=== PATIENT | male | born 1940 | race Caucasian/White ===

== ENCOUNTER 2016-08-12 06:06 | Inpatient (IN) | payer MEDICARE ==
[~2016-08-12] VITALS: Ht 182.9 cm; Wt 106.0 kg
[2016-08-12] VITALS (9 sets, daily range): BP systolic 121–137; BP diastolic 67–77
[~2016-08-12 06:06] MED LIST: ALBU8.5H3 INH; AMIO200T42 PO; BUDE10.2 INH; CALC1CAP8 PO; CEPH-368 PO; CHOL200012 PO; FURO-92 PO; FURO20TA3 PO; LISI-167 PO; METO25TA91 PO; MULT-6 PO; POTA20TA14 PO; POTA20TA6 PO; PRED10TA PO; PRED5TAB25 PO; RIVA20TA PO; SIMV20TA3 PO; TIOT18CA INH
[2016-08-12] MEDS ORDERED: LORazepam 2 MG/ML, 1ML ONE ×2 (06:17→07:14)
[2016-08-12] MEDS ORDERED: SODIUM CHLORIDE FLUSH 10ML SYR IVF ONE (06:30)
[2016-08-12] MEDS ORDERED: LORazepam 2 MG/ML, 1ML IVPush ONE ×2 (06:30→07:30)
[2016-08-12] MEDS ORDERED: ALBUTEROL/IPRATROPIUM 2.5MG/0.5MG, 3 ML ONE (06:39)
[2016-08-12] MEDS ORDERED: ALBUTEROL/IPRATROPIUM 2.5MG/0.5MG, 3 ML NPPB ONE (07:00)
[2016-08-12] MEDS ORDERED: DIPHENHYDRAMINE 50 MG/ML, 1ML ONE (07:14)
[2016-08-12 07:15] LABS: BLOOD UREA NITROGEN 34 mg/dL (7-18)
[2016-08-12 07:21] LABS: ACETAMINOPHEN 6 mcg/mL (10-30); ASPARTATE AMINO TRANSFERASE 14 U/L (15-37)
[2016-08-12 07:30] LABS: IS PT STATUS REG ER OR PRE ER? YES
[2016-08-12] MEDS ORDERED: DIPHENHYDRAMINE 50 MG/ML, 1ML IVPush ONE (07:30)
[2016-08-12 07:36] LABS: DIFF TOTAL CELLS COUNTED 100 CELL DIFF
[2016-08-12 07:44] LABS: VERIFY COUNTS? YES
[2016-08-12 07:45] LABS: ANISOCYTOSIS 1+; MICROCYTOSIS 1+; OVALOCYTES 1+; POIKILOCYTOSIS 1+; POLYCHROMASIA 1+
[2016-08-12 07:47] LABS: HYPOCHROMIA 2+; SCHISTOCYTES 1+
[2016-08-12] MEDS ORDERED: SODIUM CHLORIDE 0.9% 500 ML IV SCH (10:54)
[2016-08-12] MEDS ORDERED: ALBUTEROL/IPRATROPIUM 2.5MG/0.5MG, 3 ML NEB PRN (11:00)
[2016-08-12] MEDS ORDERED: ONDANSETRON 2MG/ML, 2ML IVPush PRN (11:30)
[2016-08-12] MEDS ORDERED: BISACODYL 10 MG SUPP PR PRN (11:30)
[2016-08-12] MEDS ORDERED: POLYETHYLENE GLYCOL 17 GM PACKET PO PRN (11:30)
[2016-08-12] MEDS ORDERED: ONDANSETRON ODT 4 MG PO PRN (11:30)
[2016-08-12] MEDS ORDERED: LEVETIRACETAM 1,000 MG in SODIUM CHLORIDE 0.9% 100 ML IV ONE (11:43)
[2016-08-12] MEDS ORDERED: IPRATROPIUM 0.5 MG/2.5 ML INHA NPPB SCH (12:00)
[2016-08-12] MEDS: ALBUTEROL/IPRATROPIUM 2.5MG/0.5MG, 3 ML NPPB SCH ×4 (13:00→22:00)
[2016-08-12 15:01] LABS: IS PT STATUS REG ER OR PRE ER? NO
[2016-08-12] MEDS: CEFTRIAXONE PMX 1GM/50ML 50 ML IV SCH (15:49)
[2016-08-12] MEDS: SIMVASTATIN 20 MG TABLET PO SCH (20:08)
[2016-08-12 21:04] LABS: IS PT STATUS REG ER OR PRE ER? NO
[2016-08-13 01:41] VITALS: BP 115/61
[2016-08-13] MEDS: ALBUTEROL/IPRATROPIUM 2.5MG/0.5MG, 3 ML NPPB SCH ×6 (02:00→22:00)
[2016-08-13 05:25] LABS: BLOOD UREA NITROGEN 27 mg/dL (7-18)
[2016-08-13 05:28] LABS: ASPARTATE AMINO TRANSFERASE 19 U/L (15-37)
[2016-08-13 05:50] LABS: DIFF TOTAL CELLS COUNTED 100 CELL DIFF
[2016-08-13 05:51] LABS: ANISOCYTOSIS 1+; VERIFY COUNTS? YES
[2016-08-13 05:52] LABS: HYPOCHROMIA 1+; MICROCYTOSIS 1+; POIKILOCYTOSIS 1+; POLYCHROMASIA 1+; SCHISTOCYTES 1+
[2016-08-13 05:53] LABS: OVALOCYTES 2+
[2016-08-13 08:28] VITALS: BP 114/65
[2016-08-13] MEDS: FUROSEMIDE 40 MG TABLET PO SCH (08:54)
[2016-08-13] MEDS: METOPROLOL SUCCINATE 25 MG TAB.ER.24H PO SCH (08:55)
[2016-08-13] MEDS: AMIODARONE 200 MG TABLET PO SCH (08:55)
[2016-08-13 08:56] VITALS: BP 123/58
[2016-08-13 13:24] VITALS: BP 112/66
[2016-08-13] MEDS: CEFTRIAXONE PMX 1GM/50ML 50 ML IV SCH (14:33)
[2016-08-13] MEDS: FLUTICASONE/VILANTEROL 200-25MCG/INH INH SCH (15:10)
[2016-08-13 16:07] LABS: CHROMATIN AB <0.2 AI (0.0-0.9); SJOGREN'S SS-A AB <0.2 AI (0.0-0.9)
[2016-08-13 19:52] VITALS: BP 120/62
[2016-08-13] MEDS: SIMVASTATIN 20 MG TABLET PO SCH (22:18)
[2016-08-14 01:42] VITALS: BP 133/71
[2016-08-14] MEDS: ALBUTEROL/IPRATROPIUM 2.5MG/0.5MG, 3 ML NPPB SCH ×5 (02:00→20:00)
[2016-08-14 05:14] LABS: ASPARTATE AMINO TRANSFERASE 23 U/L (15-37); BLOOD UREA NITROGEN 31 mg/dL (7-18)
[2016-08-14 07:07] VITALS: BP 124/64
[2016-08-14] MEDS: AMIODARONE 200 MG TABLET PO SCH (09:37)
[2016-08-14] MEDS: METOPROLOL SUCCINATE 25 MG TAB.ER.24H PO SCH (09:37)
[2016-08-14] MEDS: FUROSEMIDE 40 MG TABLET PO SCH (09:37)
[2016-08-14] MEDS: FLUTICASONE/VILANTEROL 200-25MCG/INH INH SCH (09:37)
[2016-08-14] MEDS: CEFTRIAXONE PMX 1GM/50ML 50 ML IV SCH (14:23)
[2016-08-14 15:18] VITALS: BP 114/63
[2016-08-14 19:49] VITALS: BP 102/60
[2016-08-14] MEDS: SIMVASTATIN 20 MG TABLET PO SCH (20:12)
[2016-08-15 00:03] VITALS: BP 123/65
[2016-08-15 05:48] LABS: BLOOD UREA NITROGEN 28 mg/dL (7-18)
[2016-08-15] MEDS: ALBUTEROL/IPRATROPIUM 2.5MG/0.5MG, 3 ML NPPB SCH ×5 (06:57→19:15)
[2016-08-15 07:51] VITALS: BP 100/55
[2016-08-15] MEDS: METOPROLOL SUCCINATE 25 MG TAB.ER.24H PO SCH (09:00)
[2016-08-15] MEDS: FUROSEMIDE 40 MG TABLET PO SCH (10:11)
[2016-08-15] MEDS: AMIODARONE 200 MG TABLET PO SCH (10:11)
[2016-08-15] MEDS: FLUTICASONE/VILANTEROL 200-25MCG/INH INH SCH (10:11)
[2016-08-15 13:16] VITALS: BP 103/54
[2016-08-15] MEDS: CEFTRIAXONE PMX 1GM/50ML 50 ML IV SCH (14:48)
[2016-08-15] MEDS: ACETAMINOPHEN 325 MG TABLET PO PRN (14:48)
[2016-08-15 19:46] VITALS: BP 121/71
[2016-08-15] MEDS: CARBAMAZEPINE 200 MG TABLET PO SCH (20:35)
[2016-08-15] MEDS: SIMVASTATIN 20 MG TABLET PO SCH (20:35)
[2016-08-16 00:17] VITALS: BP 129/75
[2016-08-16] MEDS: ACETAMINOPHEN 325 MG TABLET PO PRN ×3 (04:30→13:53)
[2016-08-16 05:39] LABS: BLOOD UREA NITROGEN 24 mg/dL (7-18)
[2016-08-16 08:07] VITALS: BP 127/73
[2016-08-16] MEDS: FLUTICASONE/VILANTEROL 200-25MCG/INH INH SCH (08:55)
[2016-08-16] MEDS: FUROSEMIDE 40 MG TABLET PO SCH (08:55)
[2016-08-16] MEDS: METOPROLOL SUCCINATE 25 MG TAB.ER.24H PO SCH (08:55)
[2016-08-16] MEDS: AMIODARONE 200 MG TABLET PO SCH (08:56)
[2016-08-16] MEDS: CARBAMAZEPINE 200 MG TABLET PO SCH ×2 (08:56→21:07)
[2016-08-16] MEDS: ALBUTEROL/IPRATROPIUM 2.5MG/0.5MG, 3 ML NPPB SCH ×3 (11:15→18:59)
[2016-08-16] MEDS: CEFTRIAXONE PMX 1GM/50ML 50 ML IV SCH (13:53)
[2016-08-16 16:54] VITALS: BP 135/73
[2016-08-16 19:45] VITALS: BP 121/70
[2016-08-16] MEDS: SIMVASTATIN 20 MG TABLET PO SCH (21:07)
[2016-08-17 02:51] VITALS: BP 117/72
[2016-08-17] MEDS: ACETAMINOPHEN 325 MG TABLET PO PRN (03:57)
[2016-08-17 05:17] LABS: BLOOD UREA NITROGEN 29 mg/dL (7-18)
[2016-08-17 07:36] VITALS: BP 123/70
[2016-08-17] MEDS: ALBUTEROL/IPRATROPIUM 2.5MG/0.5MG, 3 ML NPPB SCH ×4 (09:30→19:56)
[2016-08-17] MEDS: FLUTICASONE/VILANTEROL 200-25MCG/INH INH SCH (09:36)
[2016-08-17] MEDS: METOPROLOL SUCCINATE 25 MG TAB.ER.24H PO SCH (09:37)
[2016-08-17] MEDS: CARBAMAZEPINE 200 MG TABLET PO SCH ×2 (09:37→20:21)
[2016-08-17] MEDS: FUROSEMIDE 40 MG TABLET PO SCH (09:37)
[2016-08-17] MEDS: AMIODARONE 200 MG TABLET PO SCH ×2 (09:37→12:21)
[2016-08-17] MEDS: CEFTRIAXONE PMX 1GM/50ML 50 ML IV SCH (14:34)
[2016-08-17 19:10] VITALS: BP 117/60
[2016-08-17] MEDS: SIMVASTATIN 20 MG TABLET PO SCH (20:21)
[2016-08-18 02:24] VITALS: BP 130/77
[2016-08-18 05:17] LABS: BLOOD UREA NITROGEN 27 mg/dL (7-18)
[2016-08-18] MEDS: ACETAMINOPHEN 325 MG TABLET PO PRN (05:55)
[2016-08-18] MEDS: ALBUTEROL/IPRATROPIUM 2.5MG/0.5MG, 3 ML NPPB SCH ×2 (07:00→10:26)
[2016-08-18 07:30] VITALS: BP 130/69
[2016-08-18] MEDS ORDERED: POLY17PO5 PO (08:50)
[2016-08-18] MEDS ORDERED: CARB200T4 PO (08:50)
[2016-08-18] MEDS ORDERED: CEFD300C37 PO (08:50)
[2016-08-18] MEDS: FUROSEMIDE 40 MG TABLET PO SCH (09:06)
[2016-08-18] MEDS: METOPROLOL SUCCINATE 25 MG TAB.ER.24H PO SCH (09:06)
[2016-08-18] MEDS: CARBAMAZEPINE 200 MG TABLET PO SCH (09:06)
[2016-08-18] MEDS: FLUTICASONE/VILANTEROL 200-25MCG/INH INH SCH (09:06)
[2016-08-18] MEDS: AMIODARONE 200 MG TABLET PO SCH (09:07)
[2016-08-18] MEDS ORDERED: OXYC5TAB3 PO (09:20)
== END 2016-08-18 11:00 | disposition home or self-care (01) | DRG 871 ==
LOC: ED 08:25 → EDIP 08:48 → 4WST 11:30 → DCLOUNGE 08-18 10:50
PROVIDERS: ADMIT Internal Medicine; ATTEND Internal Medicine
PROC: 30233N1 Transfusion of Nonautologous Red Blood Cells into Peripheral Vein, Percutaneous Approach (ICD-10-PCS; principal; 2016-08-12)
PROC: 0T9B70Z Drainage of Bladder with Drainage Device, Via Natural or Artificial Opening (ICD-10-PCS; 2016-08-12)
DX: A41.9 Sepsis, unspecified organism (principal); G93.41 Metabolic encephalopathy; I50.43 Acute on chronic combined systolic (congestive) and diastolic (congestive) heart failure; E43 Unspecified severe protein-calorie malnutrition; N17.9 Acute kidney failure, unspecified; J96.11 Chronic respiratory failure with hypoxia; I13.0 Hypertensive heart and chronic kidney disease with heart failure and stage 1 through stage 4 chronic kidney disease, or unspecified chronic kidney disease; N39.0 Urinary tract infection, site not specified; D50.9 Iron deficiency anemia, unspecified; G62.9 Polyneuropathy, unspecified; G50.0 Trigeminal neuralgia; E66.9 Obesity, unspecified; K44.9 Diaphragmatic hernia without obstruction or gangrene; N18.3 Chronic kidney disease, stage 3 (moderate); I27.2 Other secondary pulmonary hypertension; I48.91 Unspecified atrial fibrillation; J44.9 Chronic obstructive pulmonary disease, unspecified; N25.0 Renal osteodystrophy; Z68.31 Body mass index [BMI] 31.0-31.9, adult; Z87.891 Personal history of nicotine dependence; Z95.0 Presence of cardiac pacemaker; Z90.49 Acquired absence of other specified parts of digestive tract; Z79.899 Other long term (current) drug therapy; Z71.3 Dietary counseling and surveillance; R47.1 Dysarthria and anarthria
CPT/HCPCS: 36415; 70450; 71010; 80053; 80069; 80307; 80329; 81001; 82140; 82306; 82330; 82550; 82962; 83520; 83605; 83735; 83970; 84100; 84439; 84484; 84550; 85025; 85610; 85651; 86225; 86235; 86850; 86900; 86923; 87086; 93005; 93306; 94640; 95819; 96374; 96375; J0696; J1953; J7620; J7644; G0480; J1200; J2060; P9016

== ENCOUNTER → 2016-10-06 | Outpatient (CLI) | payer MEDICARE ==
[~2016-10-06] MED LIST changes: +CARB200T4 PO; +CEFD300C37 PO; +OXYC5TAB3 PO; +POLY17PO5 PO
[2016-10-06 15:42] LABS: BLOOD UREA NITROGEN 29 mg/dL (7-18)
[2016-10-06 15:45] LABS: HEMOGLOBIN 10.4 g/dL (13.7-18.0); WHITE BLOOD COUNT 12.1 x10^3/uL (3.4-10)
== END | disposition home or self-care (01) ==
LOC: CFH 12:18
PROVIDERS: ATTEND Internal Medicine Cardiovascular Disease
DX: D64.9 Anemia, unspecified (principal); N28.9 Disorder of kidney and ureter, unspecified
CPT/HCPCS: 36415; 80048; 85027

== ENCOUNTER → 2017-01-26 | Outpatient (CLI) | payer MEDICARE ==
[~2017-01-26] MED LIST changes: -ALBU8.5H3 INH; +ALBU8.5H8 INH; -CHOL200012 PO; +CHOL200074 PO
[2017-01-26 15:34] LABS: HEMATOCRIT 30.6 % (39.2-51.8); HEMOGLOBIN 9.5 g/dL (13.7-18.0); WHITE BLOOD COUNT 6.6 x10^3/uL (3.4-10)
[2017-01-26 15:48] LABS: BLOOD UREA NITROGEN 24 mg/dL (7-18)
== END | disposition home or self-care (01) ==
LOC: LAB 13:13
PROVIDERS: ATTEND Internal Medicine Cardiovascular Disease
DX: D64.9 Anemia, unspecified (principal); N28.9 Disorder of kidney and ureter, unspecified
CPT/HCPCS: 36415; 80048; 85025

== ENCOUNTER 2017-02-18 16:09 | Inpatient (IN) | payer MEDICARE ==
[~2017-02-18] VITALS: Ht 182.9 cm; Wt 108.9 kg
[2017-02-18] MEDS ORDERED: SODIUM CHLORIDE FLUSH 10ML SYR IVF ONE (16:30)
[2017-02-18 16:51] LABS: BASOPHILS # (AUTO) 0.04 x10^3/uL (0-0.1); BASOPHILS % (AUTO) 1 % (0-1); EOSINOPHILS # (AUTO) 0.08 x10^3/uL (0-0.4); EOSINOPHILS % (AUTO) 1 % (1-7); LYMPHOCYTES # (AUTO) 0.53 x10^3/uL (1-3.4); LYMPHOCYTES % (AUTO) 7 % (22-44); MD NO; MEAN CORPUSCULAR HEMOGLOBIN 23.4 pg (27.5-34.5); MEAN CORPUSCULAR HGB CONC 30.8 g/dL (33.2-36.2); MONOCYTES # (AUTO) 1.26 x10^3/uL (0.2-0.8); MONOCYTES % (AUTO) 16 % (2-9); NEUTROPHILS % (AUTO) 77 % (42-75); PLATELET COUNT 284 x10^3/uL (130-400); RED BLOOD COUNT 3.37 x10^6/uL (4.38-5.82); RED CELL DISTRIBUTION WIDTH 18.7 % (9.4-14.8)
[2017-02-18 16:59] LABS: ALANINE AMINOTRANSFERASE 20 U/L (12-78); ALBUMIN 3.1 g/dL (3.4-5.0); ANION GAP 6 mmol/L (5-15); CALCIUM 8.7 mg/dL (8.5-10.1); CHLORIDE 106 mmol/L (98-107); CREATININE 1.34 mg/dL (0.7-1.3)
[2017-02-18 17:03] LABS: ALKALINE PHOSPHATASE 62 U/L (45-117); BILIRUBIN,TOTAL 0.5 mg/dL (0.2-1.0); TOTAL PROTEIN 7.2 g/dL (6.4-8.2); TROPONIN I < 0.015 ng/mL (0.000-0.045)
[2017-02-18] MEDS ORDERED: FUROSEMIDE 40 MG/4 ML IV ONE (17:30)
[2017-02-18] MEDS ORDERED: FUROSEMIDE 40 MG/4 ML ONE (18:23)
[2017-02-18 18:27] LABS: INTERNATIONAL NORMALIZED RATIO 1.22 (0.93-1.1); PROTHROMBIN TIME 12.6 Seconds (9.6-11.5)
[2017-02-18 18:32] LABS: % IRON SATURATION 5 % (20-55); IRON LEVEL 19 mcg/dL (65-175); TOTAL IRON BINDING CAPACITY 387 mcg/dL (250-450)
[2017-02-18] MEDS ORDERED: BISACODYL 10 MG SUPP PR PRN (19:00)
[2017-02-18] MEDS ORDERED: PANTOPRAZOLE 40 MG IV IVPush SCH (19:00)
[2017-02-18] MEDS ORDERED: OXYcodone IR 5MG TABLET PO PRN (19:00)
[2017-02-18] MEDS ORDERED: LABETALOL 5MG/ML, 20ML IVPush PRN (19:00)
[2017-02-18] MEDS ORDERED: POLYETHYLENE GLYCOL 17 GM PACKET PO PRN ×2 (19:00)
[2017-02-18] MEDS ORDERED: DOCUSATE 100 MG CAPSULE PO PRN (19:00)
[2017-02-18] MEDS ORDERED: ACETAMINOPHEN 325 MG TABLET PO PRN (19:00)
[2017-02-18] MEDS ORDERED: ONDANSETRON 2MG/ML, 2ML IVPush PRN (19:00)
[2017-02-18] MEDS ORDERED: ACETAMINOPHEN 325 MG TABLET PO ONE (19:30)
[2017-02-18] MEDS: PANTOPRAZOLE 40 MG IV IVPush SCH (19:30)
[2017-02-18 19:50] VITALS: BP 123/64
[2017-02-18 20:05] VITALS: BP 123/78
[2017-02-18 20:20] VITALS: BP 134/75
[2017-02-18] MEDS ORDERED: ACETAMINOPHEN 325 MG TABLET ONE (20:43)
[2017-02-18] MEDS ORDERED: PANTOPRAZOLE 40 MG IV ONE (20:43)
[2017-02-18] MEDS: SODIUM CHLORIDE FLUSH 10ML SYR IVF SCH (21:00)
[2017-02-18 21:20] VITALS: BP 135/98
[2017-02-18 21:45] VITALS: BP 145/84
[2017-02-18 22:27] VITALS: BP 128/72
[2017-02-18] MEDS: TEMAZEPAM 15 MG CAPSULE PO PRN (23:33)
[2017-02-18] MEDS: SIMVASTATIN 20 MG TABLET PO SCH (23:33)
[2017-02-19] MEDS: CARBAMAZEPINE 200 MG TABLET PO SCH ×3 (00:55→19:42)
[2017-02-19 02:00] VITALS: BP 119/70
[2017-02-19] MEDS ORDERED: IPRATROPIUM 0.5 MG/2.5 ML INHA ONE (03:48)
[2017-02-19] MEDS: ALBUTEROL SULFATE 2.5 MG/3 ML NPPB PRN (03:50)
[2017-02-19] MEDS: IPRATROPIUM 0.5 MG/2.5 ML INHA HHN SCH ×3 (03:50→19:13)
[2017-02-19] MEDS: FUROSEMIDE 40 MG/4 ML IV SCH ×2 (06:23→17:57)
[2017-02-19 07:30] LABS: ANION GAP 6 mmol/L (5-15); CALCIUM 8.6 mg/dL (8.5-10.1); CHLORIDE 103 mmol/L (98-107)
[2017-02-19 07:32] LABS: CREATININE 1.49 mg/dL (0.7-1.3)
[2017-02-19 07:46] LABS: BASOPHILS # (AUTO) 0.04 x10^3/uL (0-0.1); BASOPHILS % (AUTO) 1 % (0-1); EOSINOPHILS % (AUTO) 0 % (1-7); LYMPHOCYTES # (AUTO) 0.53 x10^3/uL (1-3.4); LYMPHOCYTES % (AUTO) 6 % (22-44); MD NO; MEAN CORPUSCULAR HEMOGLOBIN 23.7 pg (27.5-34.5); MEAN CORPUSCULAR VOLUME 76.4 fL (81-97); MEAN PLATELET VOLUME 8.4 fL (7.4-10.4); MONOCYTES # (AUTO) 1.25 x10^3/uL (0.2-0.8); MONOCYTES % (AUTO) 14 % (2-9); NEUTROPHILS # (AUTO) 6.93 x10^3/uL (1.8-6.8); NEUTROPHILS % (AUTO) 79 % (42-75); PLATELET COUNT 289 x10^3/uL (130-400); RED BLOOD COUNT 3.71 x10^6/uL (4.38-5.82); RED CELL DISTRIBUTION WIDTH 19.3 % (9.4-14.8)
[2017-02-19] MEDS: AMIODARONE 200 MG TABLET PO SCH (08:24)
[2017-02-19] MEDS: METOPROLOL SUCCINATE 25 MG TAB.ER.24H PO SCH (08:24)
[2017-02-19] MEDS: POTASSIUM CHLORIDE 20 MEQ TAB.ER.PRT PO SCH ×2 (08:24→17:57)
[2017-02-19] MEDS: PANTOPRAZOLE 40 MG IV IVPush SCH ×2 (08:24→19:30)
[2017-02-19] MEDS: SODIUM CHLORIDE FLUSH 10ML SYR IVF SCH ×2 (08:24→19:42)
[2017-02-19 09:00] VITALS: BP 143/73
[2017-02-19 14:09] LABS: ABSOLUTE RETICS # 0.117 x10^6/uL (0.5-1.5); RED BLOOD COUNT 3.75 x10^6/uL (4.38-5.82); RETICULOCYTE COUNT % 3.12 % (0.5-1.5)
[2017-02-19 14:13] LABS: % IRON SATURATION 5 % (20-55); IRON LEVEL 20 mcg/dL (65-175); TOTAL IRON BINDING CAPACITY 402 mcg/dL (250-450)
[2017-02-19 14:30] VITALS: BP 104/62
[2017-02-19 14:40] LABS: FOLATE LEVEL > 20.0 ng/mL (3.1-17.5)
[2017-02-19 17:55] VITALS: BP 121/70
[2017-02-19 19:23] VITALS: BP 107/65
[2017-02-19] MEDS: SIMVASTATIN 20 MG TABLET PO SCH (19:42)
[2017-02-19] MEDS: FLUTICASONE/VILANTEROL 200-25MCG/INH INH SCH (22:11)
[2017-02-20] MEDS: IPRATROPIUM 0.5 MG/2.5 ML INHA HHN SCH ×4 (01:13→20:31)
[2017-02-20 01:17] VITALS: BP 121/64
[2017-02-20] MEDS: TEMAZEPAM 15 MG CAPSULE PO PRN ×2 (01:19→23:20)
[2017-02-20 02:17] LABS: OCCULT BLOOD POSITIVE (NEGATIVE)
[2017-02-20 06:30] LABS: MEAN CORPUSCULAR HEMOGLOBIN 24.1 pg (27.5-34.5); MEAN CORPUSCULAR HGB CONC 31.9 g/dL (33.2-36.2); MEAN CORPUSCULAR VOLUME 75.4 fL (81-97); MEAN PLATELET VOLUME 7.8 fL (7.4-10.4); PLATELET COUNT 281 x10^3/uL (130-400); RED BLOOD COUNT 3.42 x10^6/uL (4.38-5.82); RED CELL DISTRIBUTION WIDTH 19.3 % (9.4-14.8)
[2017-02-20 06:37] LABS: ALBUMIN 3.1 g/dL (3.4-5.0); ANION GAP 9 mmol/L (5-15); CALCIUM 8.5 mg/dL (8.5-10.1); CHLORIDE 106 mmol/L (98-107)
[2017-02-20 06:48] LABS: MD YES
[2017-02-20 06:50] LABS: LYMPH#(MANUAL) 1.02 x10^3/uL (1-3.4); LYMPHS% (MANUAL) 14 % (22-44); MONOS#(MANUAL) 0.88 x10^3/uL (0.3-2.7); MONOS% (MANUAL) 12 % (2-9); SEGS% (MANUAL) 74 % (42-75)
[2017-02-20 06:54] LABS: <PLATELET ESTIMATE> ADEQUATE; <PLT MORPHOLOGY> NORMAL PLT MORPH; ANISOCYTOSIS 1+; HYPOCHROMIA 1+; MICROCYTOSIS 1+
[2017-02-20 08:00] VITALS: BP 121/75
[2017-02-20] MEDS: PANTOPRAZOLE 40 MG IV IVPush SCH (09:06)
[2017-02-20] MEDS: FUROSEMIDE 40 MG/4 ML IV SCH ×2 (09:06→17:45)
[2017-02-20] MEDS: AMIODARONE 200 MG TABLET PO SCH (09:07)
[2017-02-20] MEDS: METOPROLOL SUCCINATE 25 MG TAB.ER.24H PO SCH (09:07)
[2017-02-20] MEDS: SODIUM CHLORIDE FLUSH 10ML SYR IVF SCH ×2 (09:07→20:25)
[2017-02-20] MEDS: CARBAMAZEPINE 200 MG TABLET PO SCH ×2 (09:07→20:25)
[2017-02-20] MEDS: POTASSIUM CHLORIDE 20 MEQ TAB.ER.PRT PO SCH ×2 (09:07→17:45)
[2017-02-20] MEDS: OMEPRAZOLE 20 MG CAPSULE.DR PO SCH (10:00)
[2017-02-20 15:00] VITALS: BP 102/63
[2017-02-20 19:55] VITALS: BP 108/71
[2017-02-20] MEDS: SIMVASTATIN 20 MG TABLET PO SCH (20:25)
[2017-02-20] MEDS: FLUTICASONE/VILANTEROL 200-25MCG/INH INH SCH (20:25)
[2017-02-21 01:27] VITALS: BP 110/68
[2017-02-21] MEDS: IPRATROPIUM 0.5 MG/2.5 ML INHA HHN SCH ×4 (02:35→19:38)
[2017-02-21 08:52] VITALS: BP 120/72
[2017-02-21] MEDS: AMIODARONE 200 MG TABLET PO SCH (08:58)
[2017-02-21] MEDS: FERROUS GLUCONATE 324 MG TABLET PO SCH (08:58)
[2017-02-21] MEDS: POTASSIUM CHLORIDE 20 MEQ TAB.ER.PRT PO SCH ×2 (08:58→16:58)
[2017-02-21] MEDS: OMEPRAZOLE 20 MG CAPSULE.DR PO SCH (08:58)
[2017-02-21] MEDS: FUROSEMIDE 40 MG/4 ML IV SCH ×2 (08:58→16:58)
[2017-02-21] MEDS: CARBAMAZEPINE 200 MG TABLET PO SCH ×2 (08:58→21:32)
[2017-02-21] MEDS: METOPROLOL SUCCINATE 25 MG TAB.ER.24H PO SCH (08:59)
[2017-02-21] MEDS: SODIUM CHLORIDE FLUSH 10ML SYR IVF SCH ×2 (08:59→21:34)
[2017-02-21 13:57] VITALS: BP 128/78
[2017-02-21 20:48] VITALS: BP 124/71
[2017-02-21] MEDS: SIMVASTATIN 20 MG TABLET PO SCH (21:33)
[2017-02-21] MEDS: FLUTICASONE/VILANTEROL 200-25MCG/INH INH SCH (21:34)
[2017-02-22] MEDS: IPRATROPIUM 0.5 MG/2.5 ML INHA HHN SCH ×4 (04:55→19:09)
[2017-02-22 05:07] VITALS: BP 117/67
[2017-02-22 05:55] LABS: ANION GAP 10 mmol/L (5-15); CALCIUM 8.7 mg/dL (8.5-10.1); CHLORIDE 102 mmol/L (98-107); CREATININE 2.03 mg/dL (0.7-1.3)
[2017-02-22 06:53] VITALS: BP 118/71
[2017-02-22] MEDS: CARBAMAZEPINE 200 MG TABLET PO SCH ×2 (08:43→21:31)
[2017-02-22] MEDS: AMIODARONE 200 MG TABLET PO SCH (08:43)
[2017-02-22] MEDS: FUROSEMIDE 40 MG/4 ML IV SCH (08:43)
[2017-02-22] MEDS: METOPROLOL SUCCINATE 25 MG TAB.ER.24H PO SCH (08:43)
[2017-02-22] MEDS: SODIUM CHLORIDE FLUSH 10ML SYR IVF SCH ×2 (08:44→21:31)
[2017-02-22] MEDS: OMEPRAZOLE 20 MG CAPSULE.DR PO SCH (08:44)
[2017-02-22] MEDS: FERROUS GLUCONATE 324 MG TABLET PO SCH (08:44)
[2017-02-22] MEDS: POTASSIUM CHLORIDE 20 MEQ TAB.ER.PRT PO SCH ×2 (08:44→15:56)
[2017-02-22 12:24] VITALS: BP 121/76
[2017-02-22] MEDS: SODIUM CHLORIDE 0.9% 500 ML IV SCH ×2 (12:41→15:21)
[2017-02-22 21:28] VITALS: BP 115/74
[2017-02-22] MEDS: SIMVASTATIN 20 MG TABLET PO SCH (21:31)
[2017-02-22] MEDS: FLUTICASONE/VILANTEROL 200-25MCG/INH INH SCH (21:32)
[2017-02-23] MEDS: ALBUTEROL SULFATE 2.5 MG/3 ML NPPB PRN (00:29)
[2017-02-23 02:11] VITALS: BP 126/72
[2017-02-23] MEDS: IPRATROPIUM 0.5 MG/2.5 ML INHA HHN SCH ×2 (03:00→06:44)
[2017-02-23 07:36] LABS: ANION GAP 5 mmol/L (5-15); CALCIUM 8.4 mg/dL (8.5-10.1); CHLORIDE 104 mmol/L (98-107); CREATININE 1.75 mg/dL (0.7-1.3)
[2017-02-23 08:02] VITALS: BP 109/61
[2017-02-23] MEDS: SODIUM CHLORIDE FLUSH 10ML SYR IVF SCH (08:24)
[2017-02-23] MEDS: AMIODARONE 200 MG TABLET PO SCH (08:25)
[2017-02-23] MEDS: FERROUS GLUCONATE 324 MG TABLET PO SCH (08:25)
[2017-02-23] MEDS: OMEPRAZOLE 20 MG CAPSULE.DR PO SCH (08:25)
[2017-02-23] MEDS: METOPROLOL SUCCINATE 25 MG TAB.ER.24H PO SCH (08:25)
[2017-02-23] MEDS: POTASSIUM CHLORIDE 20 MEQ TAB.ER.PRT PO SCH (08:25)
[2017-02-23] MEDS: CARBAMAZEPINE 200 MG TABLET PO SCH (08:25)
[2017-02-23] MEDS ORDERED: OMEP-110 PO (10:36)
[2017-02-23] MEDS ORDERED: POTA20TA6 PO (10:36)
[2017-02-23] MEDS ORDERED: FURO-92 PO (10:36)
[2017-02-23] MEDS ORDERED: FERR325T16 PO (10:36)
[2017-02-23] MEDS ORDERED: TIOT18CA INH (10:36)
== END 2017-02-23 14:58 | disposition home or self-care (01) | DRG 291 ==
LOC: ED 19:18 → EDIP 19:56 → 5SO 22:47 → DCLOUNGE 02-23 14:29
PROVIDERS: ADMIT Internal Medicine; ATTEND Internal Medicine
PROC: 30233N1 Transfusion of Nonautologous Red Blood Cells into Peripheral Vein, Percutaneous Approach (ICD-10-PCS; principal; 2017-02-18)
PROC: 5A09357 Assistance with Respiratory Ventilation, Less than 24 Consecutive Hours, Continuous Positive Airway Pressure (ICD-10-PCS; 2017-02-22)
DX: I13.0 Hypertensive heart and chronic kidney disease with heart failure and stage 1 through stage 4 chronic kidney disease, or unspecified chronic kidney disease (principal); I50.43 Acute on chronic combined systolic (congestive) and diastolic (congestive) heart failure; J96.21 Acute and chronic respiratory failure with hypoxia; N17.9 Acute kidney failure, unspecified; E44.0 Moderate protein-calorie malnutrition; D68.59 Other primary thrombophilia; I31.3 Pericardial effusion (noninflammatory); N18.3 Chronic kidney disease, stage 3 (moderate); Z99.81 Dependence on supplemental oxygen; J44.9 Chronic obstructive pulmonary disease, unspecified; I48.2 Chronic atrial fibrillation; D50.0 Iron deficiency anemia secondary to blood loss (chronic); E66.9 Obesity, unspecified; E78.5 Hyperlipidemia, unspecified; G47.33 Obstructive sleep apnea (adult) (pediatric); R73.9 Hyperglycemia, unspecified; I34.0 Nonrheumatic mitral (valve) insufficiency; I87.2 Venous insufficiency (chronic) (peripheral); K44.9 Diaphragmatic hernia without obstruction or gangrene; K59.00 Constipation, unspecified; Z79.01 Long term (current) use of anticoagulants; Z87.891 Personal history of nicotine dependence; Z95.0 Presence of cardiac pacemaker; Z68.32 Body mass index [BMI] 32.0-32.9, adult
CPT/HCPCS: 36415; 71045; 80048; 80053; 82040; 82272; 82607; 82728; 82746; 83540; 83550; 83735; 83880; 84484; 85014; 85018; 85025; 85045; 85610; 86850; 86900; 86923; 93005; 93306; 94640; 94660; J1940; J7613; J7644; C9113; J7040; P9016

== ENCOUNTER → 2017-03-30 | Outpatient (CLI) | payer MEDICARE ==
[~2017-03-30] MED LIST changes: +FERR325T16 PO; +OMEP-110 PO
[2017-03-30 11:47] LABS: BASOPHILS # (AUTO) 0.03 x10^3/uL (0-0.1); BASOPHILS % (AUTO) 1 % (0-1); EOSINOPHILS # (AUTO) 0.08 x10^3/uL (0-0.4); EOSINOPHILS % (AUTO) 2 % (1-7); LYMPHOCYTES # (AUTO) 0.92 x10^3/uL (1-3.4); LYMPHOCYTES % (AUTO) 17 % (22-44); MD NO; MEAN CORPUSCULAR HGB CONC 31.4 g/dL (33.2-36.2); MEAN CORPUSCULAR VOLUME 76.4 fL (81-97); MEAN PLATELET VOLUME 9.1 fL (7.4-10.4); MONOCYTES # (AUTO) 0.86 x10^3/uL (0.2-0.8); MONOCYTES % (AUTO) 16 % (2-9); NEUTROPHILS # (AUTO) 3.58 x10^3/uL (1.8-6.8); NEUTROPHILS % (AUTO) 65 % (42-75); PLATELET COUNT 247 x10^3/uL (130-400); RED BLOOD COUNT 4.77 x10^6/uL (4.38-5.82); RED CELL DISTRIBUTION WIDTH 20.9 % (9.4-14.8)
[2017-03-30 12:27] LABS: ALBUMIN 3.3 g/dL (3.4-5.0); ANION GAP 7 mmol/L (5-15); CALCIUM 8.8 mg/dL (8.5-10.1); CHLORIDE 107 mmol/L (98-107)
[2017-03-30 12:35] LABS: % IRON SATURATION 10 % (20-55); ALANINE AMINOTRANSFERASE 22 U/L (12-78); ALKALINE PHOSPHATASE 61 U/L (45-117); BILIRUBIN,TOTAL 0.5 mg/dL (0.2-1.0); CREATININE 1.53 mg/dL (0.7-1.3); IRON LEVEL 38 mcg/dL (65-175); TOTAL IRON BINDING CAPACITY 373 mcg/dL (250-450); TOTAL PROTEIN 7.4 g/dL (6.4-8.2)
== END ==
LOC: LAB 11:04
PROVIDERS: ATTEND Internal Medicine Cardiovascular Disease
DX: D50.9 Iron deficiency anemia, unspecified (principal); E66.9 Obesity, unspecified; E78.5 Hyperlipidemia, unspecified; G25.81 Restless legs syndrome; G47.30 Sleep apnea, unspecified; D64.9 Anemia, unspecified; N28.9 Disorder of kidney and ureter, unspecified
CPT/HCPCS: 36415; 80053; 82728; 83540; 83550; 84443; 85025

== ENCOUNTER → 2017-04-22 | Outpatient (CLI) | payer MEDICARE ==
[2017-04-22 15:32] LABS: CULTURE INDICATED? YES; MICROSCOPIC INDICATED
[2017-04-22 15:36] LABS: MD YES; MEAN CORPUSCULAR HEMOGLOBIN 25.3 pg (27.5-34.5); MEAN CORPUSCULAR HGB CONC 32.1 g/dL (33.2-36.2); MEAN CORPUSCULAR VOLUME 78.8 fL (81-97); MEAN PLATELET VOLUME 9.7 fL (7.4-10.4); PLATELET COUNT 221 x10^3/uL (130-400); RED BLOOD COUNT 4.87 x10^6/uL (4.38-5.82); RED CELL DISTRIBUTION WIDTH 24.3 % (9.4-14.8)
[2017-04-22 15:41] LABS: ALBUMIN 3.4 g/dL (3.4-5.0); ANION GAP 6 mmol/L (5-15); CALCIUM 8.6 mg/dL (8.5-10.1); CHLORIDE 106 mmol/L (98-107)
[2017-04-22 15:47] LABS: % IRON SATURATION 50 % (20-55); ALANINE AMINOTRANSFERASE 21 U/L (12-78); ALKALINE PHOSPHATASE 65 U/L (45-117); BILIRUBIN,TOTAL 0.4 mg/dL (0.2-1.0); CREATININE 1.59 mg/dL (0.7-1.3); IRON LEVEL 185 mcg/dL (65-175); TOTAL IRON BINDING CAPACITY 370 mcg/dL (250-450); TOTAL PROTEIN 7.4 g/dL (6.4-8.2)
[2017-04-22 16:05] LABS: LYMPH#(MANUAL) 1.16 x10^3/uL (1-3.4); LYMPHS% (MANUAL) 21 % (22-44); MONOS#(MANUAL) 0.99 x10^3/uL (0.3-2.7); MONOS% (MANUAL) 18 % (2-9); SEG#(MANUAL) 3.36 x10^3/uL (1.8-6.8); SEGS% (MANUAL) 61 % (42-75)
[2017-04-22 16:06] LABS: ANISOCYTOSIS 1+; MICROCYTOSIS 1+
[2017-04-22 16:07] LABS: <PLATELET ESTIMATE> ADEQUATE; <PLT MORPHOLOGY> NORMAL PLT MORPH
== END ==
LOC: CFH 13:25
PROVIDERS: ATTEND Internal Medicine Nephrology
DX: I48.2 Chronic atrial fibrillation (principal); D64.9 Anemia, unspecified; N18.3 Chronic kidney disease, stage 3 (moderate); K44.9 Diaphragmatic hernia without obstruction or gangrene; D50.0 Iron deficiency anemia secondary to blood loss (chronic); N28.9 Disorder of kidney and ureter, unspecified; Z79.01 Long term (current) use of anticoagulants
CPT/HCPCS: 36415; 80053; 81001; 82570; 82728; 83540; 83550; 83735; 84100; 85025; 87086

== ENCOUNTER → 2017-05-04 | Outpatient (CLI) | payer MEDICARE | END | disposition home or self-care (01) | LOC: CFH 15:06 | PROVIDERS: ATTEND Nurse Practitioner Family | DX: I08.3 Combined rheumatic disorders of mitral, aortic and tricuspid valves (principal); I31.3 Pericardial effusion (noninflammatory); I10 Essential (primary) hypertension; E78.5 Hyperlipidemia, unspecified; I48.91 Unspecified atrial fibrillation; Z87.891 Personal history of nicotine dependence | CPT/HCPCS: 93306 ==

== ENCOUNTER 2017-05-19 22:55 | Inpatient (IN) | payer MEDICARE ==
[~2017-05-19] VITALS: Ht 182.9 cm; Wt 106.5 kg
[2017-05-19] MEDS ORDERED: SODIUM CHLORIDE FLUSH 10ML SYR IVF ONE (23:30)
[2017-05-19 23:50] LABS: BASOPHILS # (AUTO) 0.06 x10^3/uL (0-0.1); BASOPHILS % (AUTO) 1 % (0-1); EOSINOPHILS # (AUTO) 0.11 x10^3/uL (0-0.4); EOSINOPHILS % (AUTO) 2 % (1-7); LYMPHOCYTES # (AUTO) 0.66 x10^3/uL (1-3.4); LYMPHOCYTES % (AUTO) 10 % (22-44); MD NO; MEAN CORPUSCULAR HGB CONC 32.7 g/dL (33.2-36.2); MEAN CORPUSCULAR VOLUME 82.5 fL (81-97); MEAN PLATELET VOLUME 8.8 fL (7.4-10.4); MONOCYTES # (AUTO) 1.17 x10^3/uL (0.2-0.8); MONOCYTES % (AUTO) 18 % (2-9); NEUTROPHILS # (AUTO) 4.64 x10^3/uL (1.8-6.8); NEUTROPHILS % (AUTO) 70 % (42-75); PLATELET COUNT 249 x10^3/uL (130-400); RED BLOOD COUNT 4.64 x10^6/uL (4.38-5.82); RED CELL DISTRIBUTION WIDTH 24.9 % (9.4-14.8)
[2017-05-20 00:02] LABS: ALANINE AMINOTRANSFERASE 20 U/L (12-78); ALBUMIN 3.4 g/dL (3.4-5.0); ANION GAP 10 mmol/L (5-15); CALCIUM 8.5 mg/dL (8.5-10.1); CHLORIDE 105 mmol/L (98-107); CREATININE 1.64 mg/dL (0.7-1.3)
[2017-05-20 00:06] LABS: ALKALINE PHOSPHATASE 62 U/L (45-117); BILIRUBIN,TOTAL 0.3 mg/dL (0.2-1.0); TOTAL PROTEIN 7.5 g/dL (6.4-8.2); TROPONIN I < 0.015 ng/mL (0.000-0.045)
[2017-05-20] MEDS ORDERED: ONDANSETRON ODT 4 MG ONE (00:17)
[2017-05-20] MEDS ORDERED: MORPHINE SULFATE 4 MG/ML, 1ML ONE ×2 (00:18→02:26)
[2017-05-20] MEDS: MORPHINE SULFATE 4 MG/ML, 1ML IVPush PRN ×2 (00:23→02:53)
[2017-05-20] MEDS ORDERED: ONDANSETRON ODT 4 MG PO ONE (00:30)
[2017-05-20 01:40] LABS: CULTURE INDICATED? YES; MICROSCOPIC INDICATED
[2017-05-20] MEDS ORDERED: SODIUM CHLORIDE 0.9% 1,000 ML IV ONE (02:02)
[2017-05-20] MEDS ORDERED: METRONIDAZOLE PMX 500MG/100ML 100 ML ONE (02:27)
[2017-05-20] MEDS ORDERED: CIPROFLOXACIN/PMX 400MG/200ML 200 ML IV ONE (02:30)
[2017-05-20] MEDS ORDERED: METRONIDAZOLE PMX 500MG/100ML 100 ML IV ONE (02:30)
[2017-05-20] MEDS ORDERED: ROPINIROLE PO (02:59)
[2017-05-20] MEDS ORDERED: SODIUM CHLORIDE 0.9% 1,000 ML IV SCH (03:21)
[2017-05-20] MEDS ORDERED: ACETAMINOPHEN 325 MG TABLET PO PRN (03:30)
[2017-05-20] MEDS ORDERED: CEFTRIAXONE PMX 1GM/50ML 50 ML IV SCH (03:30)
[2017-05-20] MEDS ORDERED: ONDANSETRON 2MG/ML, 2ML IVPush PRN (03:30)
[2017-05-20] MEDS ORDERED: POLYETHYLENE GLYCOL 17 GM PACKET PO PRN (03:30)
[2017-05-20] MEDS ORDERED: CEFTRIAXONE PMX 1GM/50ML 50 ML ONE (03:56)
[2017-05-20 04:25] VITALS: BP 111/70
[2017-05-20] MEDS ORDERED: ALBUTEROL/IPRATROPIUM 2.5MG/0.5MG, 3 ML NPPB PRN (04:30)
[2017-05-20] MEDS ORDERED: RIVA20TA PO (05:16)
[2017-05-20] MEDS ORDERED: ASCO10004 PO (05:20)
[2017-05-20] MEDS: ALBUTEROL SULFATE INH SCH (06:01)
[2017-05-20 06:50] VITALS: BP 106/64
[2017-05-20] MEDS ORDERED: ALBUTEROL/IPRATROPIUM 2.5MG/0.5MG, 3 ML NPPB SCH (07:00)
[2017-05-20] MEDS: morphine SULFATE 10 MG/ML, 1ML IVPush PRN ×3 (08:00→16:04)
[2017-05-20] MEDS: IPRATROPIUM 0.5 MG/2.5 ML INHA HHN SCH ×2 (09:00→15:00)
[2017-05-20] MEDS: FERROUS GLUCONATE 324 MG TABLET PO SCH (09:02)
[2017-05-20] MEDS: POTASSIUM CHLORIDE 20 MEQ TAB.ER.PRT PO SCH (09:02)
[2017-05-20] MEDS: FUROSEMIDE 40 MG TABLET PO SCH (09:02)
[2017-05-20] MEDS: METOPROLOL SUCCINATE 25 MG TAB.ER.24H PO SCH (09:02)
[2017-05-20] MEDS: AMIODARONE 200 MG TABLET PO SCH (09:03)
[2017-05-20] MEDS: FLUTICASONE/VILANTEROL 200-25MCG/INH INH SCH (09:39)
[2017-05-20] MEDS: OMEPRAZOLE 20 MG CAPSULE.DR PO SCH (09:39)
[2017-05-20] MEDS ORDERED: CEFTRIAXONE 2 GM in DEXTROSE 5% 50 ML IV SCH (10:00)
[2017-05-20] MEDS: RIVAROXABAN 20 MG TABLET PO SCH (10:20)
[2017-05-20] MEDS: CEFTRIAXONE 2 GM in DEXTROSE 5% 50 ML IVPB SCH (10:55)
[2017-05-20] MEDS: METRONIDAZOLE PMX 500MG/100ML 100 ML IV SCH ×2 (12:25→20:53)
[2017-05-20 13:41] VITALS: BP 108/70
[2017-05-20 20:17] VITALS: BP 128/78
[2017-05-20] MEDS: SIMVASTATIN 20 MG TABLET PO SCH (20:53)
[2017-05-20] MEDS: ALBUTEROL/IPRATROPIUM 2.5MG/0.5MG, 3 ML NPPB SCH (21:15)
[2017-05-21 01:27] VITALS: BP 133/78
[2017-05-21] MEDS: ALBUTEROL SULFATE INH SCH (03:30)
[2017-05-21] MEDS: METRONIDAZOLE PMX 500MG/100ML 100 ML IV SCH ×3 (05:05→22:07)
[2017-05-21 05:51] LABS: MEAN CORPUSCULAR HEMOGLOBIN 26.8 pg (27.5-34.5); MEAN CORPUSCULAR HGB CONC 32.4 g/dL (33.2-36.2); MEAN CORPUSCULAR VOLUME 82.9 fL (81-97); MEAN PLATELET VOLUME 8.7 fL (7.4-10.4); PLATELET COUNT 196 x10^3/uL (130-400); RED BLOOD COUNT 4.42 x10^6/uL (4.38-5.82); RED CELL DISTRIBUTION WIDTH 25.6 % (9.4-14.8)
[2017-05-21 05:56] LABS: ALBUMIN 3.2 g/dL (3.4-5.0); CHLORIDE 107 mmol/L (98-107)
[2017-05-21 06:04] LABS: ALANINE AMINOTRANSFERASE 17 U/L (12-78); ALKALINE PHOSPHATASE 55 U/L (45-117); ANION GAP 5 mmol/L (5-15); BILIRUBIN,TOTAL 0.3 mg/dL (0.2-1.0); CALCIUM 8.4 mg/dL (8.5-10.1)
[2017-05-21 06:19] LABS: BASOPHILS # (AUTO) 0.02 x10^3/uL (0-0.1); BASOPHILS % (AUTO) 0 % (0-1); EOSINOPHILS # (AUTO) 0.17 x10^3/uL (0-0.4); EOSINOPHILS % (AUTO) 3 % (1-7); LYMPHOCYTES # (AUTO) 0.61 x10^3/uL (1-3.4); LYMPHOCYTES % (AUTO) 9 % (22-44); MD SCAN; MONOCYTES # (AUTO) 1.23 x10^3/uL (0.2-0.8); MONOCYTES % (AUTO) 18 % (2-9); NEUTROPHILS # (AUTO) 4.79 x10^3/uL (1.8-6.8); NEUTROPHILS % (AUTO) 70 % (42-75)
[2017-05-21] MEDS: morphine SULFATE 10 MG/ML, 1ML IVPush PRN ×2 (06:55→20:45)
[2017-05-21 07:47] VITALS: BP 114/62
[2017-05-21] MEDS: POTASSIUM CHLORIDE 20 MEQ TAB.ER.PRT PO SCH (08:36)
[2017-05-21] MEDS: METOPROLOL SUCCINATE 25 MG TAB.ER.24H PO SCH (08:37)
[2017-05-21] MEDS: FUROSEMIDE 40 MG TABLET PO SCH (08:37)
[2017-05-21] MEDS: AMIODARONE 200 MG TABLET PO SCH (08:38)
[2017-05-21] MEDS: OMEPRAZOLE 20 MG CAPSULE.DR PO SCH (08:38)
[2017-05-21] MEDS: FERROUS GLUCONATE 324 MG TABLET PO SCH (08:38)
[2017-05-21] MEDS: FLUTICASONE/VILANTEROL 200-25MCG/INH INH SCH (08:39)
[2017-05-21] MEDS: ALBUTEROL/IPRATROPIUM 2.5MG/0.5MG, 3 ML NPPB SCH ×2 (09:00→20:36)
[2017-05-21] MEDS: RIVAROXABAN 20 MG TABLET PO SCH (11:01)
[2017-05-21] MEDS: CEFTRIAXONE 2 GM in DEXTROSE 5% 50 ML IVPB SCH (11:01)
[2017-05-21] MEDS ORDERED: PHARMACY MAY ADJ FOR RENAL FX MC PRN (13:00)
[2017-05-21 13:57] VITALS: BP 110/62
[2017-05-21] MEDS: ACYCLOVIR 1,000 MG in SODIUM CHLORIDE 0.9% 250 ML IV SCH ×2 (15:20→23:43)
[2017-05-21 18:48] VITALS: BP 96/58
[2017-05-21] MEDS: SIMVASTATIN 20 MG TABLET PO SCH (20:45)
[2017-05-22 00:08] VITALS: BP 125/71
[2017-05-22] MEDS: ALBUTEROL SULFATE INH SCH (03:04)
[2017-05-22] MEDS: METRONIDAZOLE PMX 500MG/100ML 100 ML IV SCH ×3 (06:18→22:09)
[2017-05-22 08:30] VITALS: BP 116/65
[2017-05-22] MEDS: ALBUTEROL/IPRATROPIUM 2.5MG/0.5MG, 3 ML NPPB SCH ×2 (09:00→19:51)
[2017-05-22] MEDS: POLYETHYLENE GLYCOL 17 GM PACKET PO SCH (09:05)
[2017-05-22] MEDS: FERROUS GLUCONATE 324 MG TABLET PO SCH (09:05)
[2017-05-22] MEDS: POTASSIUM CHLORIDE 20 MEQ TAB.ER.PRT PO SCH (09:05)
[2017-05-22] MEDS: RIVAROXABAN 20 MG TABLET PO SCH (09:05)
[2017-05-22] MEDS: AMIODARONE 200 MG TABLET PO SCH (09:05)
[2017-05-22] MEDS: METOPROLOL SUCCINATE 25 MG TAB.ER.24H PO SCH (09:05)
[2017-05-22] MEDS: ACYCLOVIR 1,000 MG in SODIUM CHLORIDE 0.9% 250 ML IV SCH ×2 (09:06→17:03)
[2017-05-22] MEDS: OMEPRAZOLE 20 MG CAPSULE.DR PO SCH (09:06)
[2017-05-22] MEDS: FUROSEMIDE 40 MG TABLET PO SCH (09:06)
[2017-05-22] MEDS: FLUTICASONE/VILANTEROL 200-25MCG/INH INH SCH (09:16)
[2017-05-22] MEDS: morphine SULFATE 10 MG/ML, 1ML IVPush PRN (09:49)
[2017-05-22] MEDS: CEFTRIAXONE 2 GM in DEXTROSE 5% 50 ML IVPB SCH (11:19)
[2017-05-22 14:30] VITALS: BP 137/75
[2017-05-22 19:13] VITALS: BP 136/60
[2017-05-22] MEDS: SIMVASTATIN 20 MG TABLET PO SCH (20:46)
[2017-05-22] MEDS: HYDROcodone/APAP 5/325 TABLET PO PRN (22:09)
[2017-05-23 00:57] VITALS: BP 110/64
[2017-05-23] MEDS: ALBUTEROL SULFATE INH SCH (01:39)
[2017-05-23] MEDS: ACYCLOVIR 1,000 MG in SODIUM CHLORIDE 0.9% 250 ML IV SCH ×3 (01:39→17:46)
[2017-05-23] MEDS: METRONIDAZOLE PMX 500MG/100ML 100 ML IV SCH ×3 (05:22→22:05)
[2017-05-23] MEDS: HYDROcodone/APAP 5/325 TABLET PO PRN ×4 (05:22→20:32)
[2017-05-23 06:49] VITALS: BP 117/65
[2017-05-23] MEDS: ALBUTEROL/IPRATROPIUM 2.5MG/0.5MG, 3 ML NPPB SCH ×3 (09:00→20:22)
[2017-05-23] MEDS: FERROUS GLUCONATE 324 MG TABLET PO SCH (09:25)
[2017-05-23] MEDS: RIVAROXABAN 20 MG TABLET PO SCH (09:25)
[2017-05-23] MEDS: METOPROLOL SUCCINATE 25 MG TAB.ER.24H PO SCH (09:25)
[2017-05-23] MEDS: FUROSEMIDE 40 MG TABLET PO SCH (09:26)
[2017-05-23] MEDS: POLYETHYLENE GLYCOL 17 GM PACKET PO SCH (09:26)
[2017-05-23] MEDS: OMEPRAZOLE 20 MG CAPSULE.DR PO SCH (09:26)
[2017-05-23] MEDS: AMIODARONE 200 MG TABLET PO SCH (09:26)
[2017-05-23] MEDS: POTASSIUM CHLORIDE 20 MEQ TAB.ER.PRT PO SCH (09:26)
[2017-05-23] MEDS: CEFTRIAXONE 2 GM in DEXTROSE 5% 50 ML IVPB SCH (09:26)
[2017-05-23] MEDS: FLUTICASONE/VILANTEROL 200-25MCG/INH INH SCH (09:26)
[2017-05-23] MEDS ORDERED: MAGNESIUM CITRATE 300ML ORAL SOL PO PRN (09:30)
[2017-05-23 14:00] VITALS: BP 109/59
[2017-05-23 19:57] VITALS: BP 132/74
[2017-05-23] MEDS: SIMVASTATIN 20 MG TABLET PO SCH (20:32)
[2017-05-24] MEDS: ACYCLOVIR 1,000 MG in SODIUM CHLORIDE 0.9% 250 ML IV SCH ×3 (00:52→17:05)
[2017-05-24] MEDS: HYDROcodone/APAP 5/325 TABLET PO PRN ×5 (00:57→21:51)
[2017-05-24 01:56] VITALS: BP 143/60
[2017-05-24] MEDS: ALBUTEROL SULFATE INH SCH (03:30)
[2017-05-24] MEDS: METRONIDAZOLE PMX 500MG/100ML 100 ML IV SCH (05:25)
[2017-05-24 05:44] LABS: CHLORIDE 105 mmol/L (98-107)
[2017-05-24 05:51] LABS: ALANINE AMINOTRANSFERASE 21 U/L (12-78); ALBUMIN 3.2 g/dL (3.4-5.0); ALKALINE PHOSPHATASE 50 U/L (45-117); ANION GAP 7 mmol/L (5-15); BILIRUBIN,TOTAL 0.4 mg/dL (0.2-1.0); CALCIUM 8.4 mg/dL (8.5-10.1); CREATININE 1.45 mg/dL (0.7-1.3); TOTAL PROTEIN 7.3 g/dL (6.4-8.2)
[2017-05-24 07:47] VITALS: BP 129/71
[2017-05-24] MEDS: FLUTICASONE/VILANTEROL 200-25MCG/INH INH SCH (09:09)
[2017-05-24] MEDS: RIVAROXABAN 20 MG TABLET PO SCH (09:09)
[2017-05-24] MEDS: METOPROLOL SUCCINATE 25 MG TAB.ER.24H PO SCH (09:10)
[2017-05-24] MEDS: POTASSIUM CHLORIDE 20 MEQ TAB.ER.PRT PO SCH (09:10)
[2017-05-24] MEDS: FUROSEMIDE 40 MG TABLET PO SCH (09:10)
[2017-05-24] MEDS: FERROUS GLUCONATE 324 MG TABLET PO SCH (09:10)
[2017-05-24] MEDS: POLYETHYLENE GLYCOL 17 GM PACKET PO SCH (09:11)
[2017-05-24] MEDS: OMEPRAZOLE 20 MG CAPSULE.DR PO SCH (09:11)
[2017-05-24] MEDS: AMIODARONE 200 MG TABLET PO SCH (09:29)
[2017-05-24] MEDS: ALBUTEROL/IPRATROPIUM 2.5MG/0.5MG, 3 ML NPPB SCH ×2 (09:40→21:15)
[2017-05-24] MEDS: CIPROFLOXACIN 250 MG TABLET PO SCH ×2 (09:48→20:50)
[2017-05-24 12:50] VITALS: BP 107/52
[2017-05-24] MEDS: SIMVASTATIN 20 MG TABLET PO SCH (20:50)
[2017-05-24 21:48] VITALS: BP 133/69
[2017-05-25] MEDS: ACYCLOVIR 1,000 MG in SODIUM CHLORIDE 0.9% 250 ML IV SCH ×2 (00:58→09:00)
[2017-05-25 02:51] VITALS: BP 139/83
[2017-05-25] MEDS: ALBUTEROL SULFATE INH SCH (03:30)
[2017-05-25] MEDS: HYDROcodone/APAP 5/325 TABLET PO PRN ×3 (03:39→10:55)
[2017-05-25 06:35] VITALS: BP 129/73
[2017-05-25] MEDS: OMEPRAZOLE 20 MG CAPSULE.DR PO SCH (07:30)
[2017-05-25] MEDS: FERROUS GLUCONATE 324 MG TABLET PO SCH (08:00)
[2017-05-25] MEDS: ALBUTEROL/IPRATROPIUM 2.5MG/0.5MG, 3 ML NPPB SCH (08:36)
[2017-05-25] MEDS: FLUTICASONE/VILANTEROL 200-25MCG/INH INH SCH (08:59)
[2017-05-25 09:00] VITALS: BP 122/71
[2017-05-25] MEDS: POLYETHYLENE GLYCOL 17 GM PACKET PO SCH (09:00)
[2017-05-25] MEDS: CIPROFLOXACIN 250 MG TABLET PO SCH (09:00)
[2017-05-25] MEDS: FUROSEMIDE 40 MG TABLET PO SCH (09:01)
[2017-05-25] MEDS: POTASSIUM CHLORIDE 20 MEQ TAB.ER.PRT PO SCH (09:01)
[2017-05-25] MEDS: AMIODARONE 200 MG TABLET PO SCH (09:01)
[2017-05-25] MEDS: METOPROLOL SUCCINATE 25 MG TAB.ER.24H PO SCH (09:02)
[2017-05-25] MEDS: RIVAROXABAN 20 MG TABLET PO SCH (09:02)
[2017-05-25] MEDS ORDERED: CIPR250T27 PO (09:20)
[2017-05-25] MEDS ORDERED: METR500T8 PO (09:20)
[2017-05-25] MEDS ORDERED: ACYC-57 PO (09:20)
[2017-05-25 13:20] VITALS: BP 104/67
== END 2017-05-25 16:05 | disposition home or self-care (01) | DRG 392 ==
LOC: ED 05-20 02:00 → EDIP 05-20 02:05 → UNDOADMIN 05-20 02:05 → ED 05-20 02:14 → EDIP 05-20 02:23 → 4EST 05-20 04:41
PROVIDERS: ADMIT Hospitalist; ATTEND Hospitalist
DX: K57.32 Diverticulitis of large intestine without perforation or abscess without bleeding (principal); J96.11 Chronic respiratory failure with hypoxia; I31.3 Pericardial effusion (noninflammatory); I13.0 Hypertensive heart and chronic kidney disease with heart failure and stage 1 through stage 4 chronic kidney disease, or unspecified chronic kidney disease; I50.32 Chronic diastolic (congestive) heart failure; I48.91 Unspecified atrial fibrillation; B02.9 Zoster without complications; N30.90 Cystitis, unspecified without hematuria; Z99.81 Dependence on supplemental oxygen; E66.9 Obesity, unspecified; Z95.0 Presence of cardiac pacemaker; N18.3 Chronic kidney disease, stage 3 (moderate); G47.33 Obstructive sleep apnea (adult) (pediatric); Z68.31 Body mass index [BMI] 31.0-31.9, adult; I34.0 Nonrheumatic mitral (valve) insufficiency; I83.90 Asymptomatic varicose veins of unspecified lower extremity; I87.2 Venous insufficiency (chronic) (peripheral); J44.9 Chronic obstructive pulmonary disease, unspecified; Z79.01 Long term (current) use of anticoagulants; Z87.891 Personal history of nicotine dependence
CPT/HCPCS: 36415; 71045; 74176; 80053; 81001; 83690; 83735; 84100; 84484; 85025; 87086; 93005; 93321; 94640; 96374; 96376; J0133; J0696; J7620; Q0162; C8924; J2270; J7030; J7050

== ENCOUNTER 2017-10-11 16:35 | Emergency (ER) | payer MEDICARE ==
[~2017-10-11] VITALS: Ht 182.9 cm; Wt 106.4 kg
[~2017-10-11 16:35] MED LIST changes: +ACYC-57 PO; +ASCO10004 PO; +CIPR250T27 PO; +METR500T8 PO; +ROPINIROLE PO
[2017-10-11 16:47] VITALS: BP 103/71
[2017-10-11 17:41] LABS: BASOPHILS # (AUTO) 0.03 x10^3/uL (0-0.1); BASOPHILS % (AUTO) 1 % (0-1); EOSINOPHILS # (AUTO) 0.11 x10^3/uL (0-0.4); EOSINOPHILS % (AUTO) 2 % (1-7); LYMPHOCYTES # (AUTO) 0.97 x10^3/uL (1-3.4); LYMPHOCYTES % (AUTO) 14 % (22-44); MD NO; MEAN CORPUSCULAR HEMOGLOBIN 29.8 pg (27.5-34.5); MEAN CORPUSCULAR HGB CONC 32.8 g/dL (33.2-36.2); MEAN CORPUSCULAR VOLUME 90.9 fL (81-97); MEAN PLATELET VOLUME 8.7 fL (7.4-10.4); MONOCYTES # (AUTO) 1.24 x10^3/uL (0.2-0.8); MONOCYTES % (AUTO) 18 % (2-9); NEUTROPHILS # (AUTO) 4.68 x10^3/uL (1.8-6.8); NEUTROPHILS % (AUTO) 67 % (42-75); PLATELET COUNT 315 x10^3/uL (130-400); RED BLOOD COUNT 3.98 x10^6/uL (4.38-5.82); RED CELL DISTRIBUTION WIDTH 14.2 % (9.4-14.8)
[2017-10-11 17:50] LABS: ANION GAP 5 mmol/L (5-15); CALCIUM 8.7 mg/dL (8.5-10.1); CHLORIDE 105 mmol/L (98-107); CREATININE 1.54 mg/dL (0.7-1.3)
== END 2017-10-11 18:26 | disposition home or self-care (01) ==
LOC: ED 18:01
DX: R60.0 Localized edema (principal); J44.9 Chronic obstructive pulmonary disease, unspecified; I50.9 Heart failure, unspecified; I48.91 Unspecified atrial fibrillation; I11.0 Hypertensive heart disease with heart failure; Z90.89 Acquired absence of other organs; Z95.0 Presence of cardiac pacemaker
CPT/HCPCS: 36415; 80048; 85025; 99285

== ENCOUNTER → 2017-10-21 | Outpatient (CLI) | payer MEDICARE ==
[2017-10-21 12:47] LABS: BASOPHILS # (AUTO) 0.04 x10^3/uL (0-0.1); BASOPHILS % (AUTO) 1 % (0-1); EOSINOPHILS # (AUTO) 0.17 x10^3/uL (0-0.4); EOSINOPHILS % (AUTO) 3 % (1-7); LYMPHOCYTES # (AUTO) 1.11 x10^3/uL (1-3.4); LYMPHOCYTES % (AUTO) 18 % (22-44); MD NO; MEAN CORPUSCULAR HGB CONC 32.4 g/dL (33.2-36.2); MEAN CORPUSCULAR VOLUME 89.7 fL (81-97); MEAN PLATELET VOLUME 9.4 fL (7.4-10.4); MONOCYTES % (AUTO) 14 % (2-9); NEUTROPHILS # (AUTO) 4.06 x10^3/uL (1.8-6.8); NEUTROPHILS % (AUTO) 65 % (42-75); PLATELET COUNT 232 x10^3/uL (130-400); RED BLOOD COUNT 4.25 x10^6/uL (4.38-5.82); RED CELL DISTRIBUTION WIDTH 14.7 % (9.4-14.8)
[2017-10-21 13:02] LABS: ALBUMIN 3.1 g/dL (3.4-5.0); ANION GAP 5 mmol/L (5-15); CALCIUM 8.9 mg/dL (8.5-10.1); CHLORIDE 109 mmol/L (98-107)
[2017-10-21 13:05] LABS: ALANINE AMINOTRANSFERASE 21 U/L (12-78); ALKALINE PHOSPHATASE 50 U/L (45-117); BILIRUBIN,TOTAL 0.4 mg/dL (0.2-1.0); CREATININE 1.57 mg/dL (0.7-1.3)
== END | disposition home or self-care (01) ==
LOC: CFH 10:47
PROVIDERS: ATTEND Internal Medicine Cardiovascular Disease
DX: N28.9 Disorder of kidney and ureter, unspecified (principal); I13.0 Hypertensive heart and chronic kidney disease with heart failure and stage 1 through stage 4 chronic kidney disease, or unspecified chronic kidney disease; E78.5 Hyperlipidemia, unspecified
CPT/HCPCS: 36415; 80053; 85025

== ENCOUNTER → 2017-11-17 | Outpatient (CLI) | payer MEDICARE | END | disposition home or self-care (01) | LOC: CVU 14:21 | PROVIDERS: ATTEND Internal Medicine Cardiovascular Disease | DX: I34.0 Nonrheumatic mitral (valve) insufficiency (principal); I35.8 Other nonrheumatic aortic valve disorders; I10 Essential (primary) hypertension; E78.5 Hyperlipidemia, unspecified; Z87.891 Personal history of nicotine dependence | CPT/HCPCS: 93306 ==

== ENCOUNTER → 2017-11-17 | Outpatient (CLI) | payer MEDICARE | END | disposition home or self-care (01) | LOC: CFH 13:26 | PROVIDERS: ATTEND Licensed Practical Nurse | DX: Z12.2 Encounter for screening for malignant neoplasm of respiratory organs (principal); I31.3 Pericardial effusion (noninflammatory); J98.11 Atelectasis; J84.10 Pulmonary fibrosis, unspecified; Z95.0 Presence of cardiac pacemaker; Z87.891 Personal history of nicotine dependence | CPT/HCPCS: G0297 ==

== ENCOUNTER 2017-12-09 13:13 | Inpatient (IN) | payer MEDICARE ==
[~2017-12-09] VITALS: Ht 182.9 cm; Wt 107.3 kg
[2017-12-09] MEDS ORDERED: SODIUM CHLORIDE FLUSH 10ML SYR IVF ONE (14:00)
[2017-12-09 14:33] LABS: BASOPHILS # (AUTO) 0.01 x10^3/uL (0-0.1); BASOPHILS % (AUTO) 0 % (0-1); EOSINOPHILS # (AUTO) 0.04 x10^3/uL (0-0.4); EOSINOPHILS % (AUTO) 0 % (1-7); LYMPHOCYTES # (AUTO) 0.92 x10^3/uL (1-3.4); LYMPHOCYTES % (AUTO) 9 % (22-44); MD NO; MEAN CORPUSCULAR HEMOGLOBIN 29.2 pg (27.5-34.5); MEAN CORPUSCULAR HGB CONC 32.5 g/dL (33.2-36.2); MEAN CORPUSCULAR VOLUME 89.8 fL (81-97); MEAN PLATELET VOLUME 8.9 fL (7.4-10.4); MONOCYTES # (AUTO) 1.24 x10^3/uL (0.2-0.8); MONOCYTES % (AUTO) 12 % (2-9); NEUTROPHILS # (AUTO) 8.43 x10^3/uL (1.8-6.8); NEUTROPHILS % (AUTO) 79 % (42-75); PLATELET COUNT 190 x10^3/uL (130-400); RED BLOOD COUNT 4.01 x10^6/uL (4.38-5.82)
[2017-12-09 14:39] LABS: INTERNATIONAL NORMALIZED RATIO 1.42 (0.93-1.1); PROTHROMBIN TIME 14.5 Seconds (9.6-11.5)
[2017-12-09 14:41] LABS: ALANINE AMINOTRANSFERASE 26 U/L (12-78); ANION GAP 7 mmol/L (5-15); CALCIUM 8.5 mg/dL (8.5-10.1); CHLORIDE 115 mmol/L (98-107)
[2017-12-09 14:46] LABS: ALKALINE PHOSPHATASE 51 U/L (45-117); BILIRUBIN,TOTAL 0.7 mg/dL (0.2-1.0); TOTAL PROTEIN 7.2 g/dL (6.4-8.2); TROPONIN I 0.026 ng/mL (0.000-0.045)
[2017-12-09] MEDS ORDERED: FUROSEMIDE 40 MG/4 ML IVPush ONE (15:00)
[2017-12-09] MEDS ORDERED: FUROSEMIDE 40 MG/4 ML ONE (15:03)
[2017-12-09] MEDS ORDERED: SODIUM CHLORIDE FLUSH 10ML SYR IVF PRN (16:00)
[2017-12-09] MEDS ORDERED: ROPINIROLE 1MG TABLET PO PRN (16:00)
[2017-12-09] MEDS ORDERED: HYDROcodone/APAP 5/325 TABLET PO PRN (16:00)
[2017-12-09] MEDS ORDERED: ONDANSETRON 2MG/ML, 2ML IVPush PRN (16:00)
[2017-12-09] MEDS ORDERED: LIDODERM 5% PATCH TD PRN (16:00)
[2017-12-09] MEDS ORDERED: ALBUTEROL SULFATE INH SCH (16:00)
[2017-12-09 16:18] LABS: FREE T4 (FREE THYROXINE) 1.84 ng/dL (0.76-1.46); THYROID STIMULATING HORMONE 0.445 mIU/L (0.358-3.740)
[2017-12-09] MEDS: FUROSEMIDE 40 MG/4 ML IV SCH (16:34)
[2017-12-09 17:07] VITALS: BP 113/84
[2017-12-09] MEDS ORDERED: ALBUTEROL SULFATE 2.5 MG/3 ML NPPB PRN ×2 (17:30→18:00)
[2017-12-09] MEDS: IPRATROPIUM 0.5 MG/2.5 ML INHA NPPB SCH ×2 (17:30→21:05)
[2017-12-09] MEDS ORDERED: POLYETHYLENE GLYCOL 17 GM PACKET PO PRN (18:00)
[2017-12-09 19:57] VITALS: BP 129/65
[2017-12-09 20:20] LABS: ANION GAP 5 mmol/L (5-15); CALCIUM 8.6 mg/dL (8.5-10.1); CHLORIDE 114 mmol/L (98-107); CREATININE 1.57 mg/dL (0.7-1.3)
[2017-12-09] MEDS: SIMVASTATIN 20 MG TABLET PO SCH (20:45)
[2017-12-09] MEDS ORDERED: IPRATROPIUM 0.5 MG/2.5 ML INHA NPPB SCH (21:00)
[2017-12-09] MEDS ORDERED: TEMAZEPAM 30 MG CAPSULE PO ONE (23:00)
[2017-12-09] MEDS ORDERED: TEMAZEPAM 30 MG CAPSULE ONE (23:06)
[2017-12-10 01:18] VITALS: BP 144/64
[2017-12-10] MEDS: IPRATROPIUM 0.5 MG/2.5 ML INHA NPPB SCH ×4 (02:23→19:20)
[2017-12-10] MEDS ORDERED: FUROSEMIDE 20 MG/2 ML ONE (03:50)
[2017-12-10] MEDS ORDERED: FUROSEMIDE 20 MG/2 ML IV ONE (04:00)
[2017-12-10 05:24] LABS: CHLORIDE 112 mmol/L (98-107)
[2017-12-10 05:31] LABS: ALANINE AMINOTRANSFERASE 24 U/L (12-78); ALBUMIN 3.2 g/dL (3.4-5.0); ALKALINE PHOSPHATASE 57 U/L (45-117); ANION GAP 10 mmol/L (5-15); BASOPHILS # (AUTO) 0.03 x10^3/uL (0-0.1); BASOPHILS % (AUTO) 0 % (0-1); BILIRUBIN,TOTAL 0.9 mg/dL (0.2-1.0); CALCIUM 8.9 mg/dL (8.5-10.1); CREATININE 1.48 mg/dL (0.7-1.3); EOSINOPHILS # (AUTO) 0.04 x10^3/uL (0-0.4); EOSINOPHILS % (AUTO) 0 % (1-7); LYMPHOCYTES # (AUTO) 0.99 x10^3/uL (1-3.4); LYMPHOCYTES % (AUTO) 8 % (22-44); MD NO; MEAN CORPUSCULAR HEMOGLOBIN 29.6 pg (27.5-34.5); MEAN CORPUSCULAR HGB CONC 32.5 g/dL (33.2-36.2); MEAN CORPUSCULAR VOLUME 91.1 fL (81-97); MEAN PLATELET VOLUME 9.1 fL (7.4-10.4); MONOCYTES # (AUTO) 1.12 x10^3/uL (0.2-0.8); MONOCYTES % (AUTO) 9 % (2-9); NEUTROPHILS # (AUTO) 10.77 x10^3/uL (1.8-6.8); NEUTROPHILS % (AUTO) 83 % (42-75); PLATELET COUNT 196 x10^3/uL (130-400); RED BLOOD COUNT 4.07 x10^6/uL (4.38-5.82); TOTAL PROTEIN 7.5 g/dL (6.4-8.2)
[2017-12-10 06:21] VITALS: BP 161/79
[2017-12-10] MEDS: OMEPRAZOLE 20 MG CAPSULE.DR PO SCH (06:22)
[2017-12-10] MEDS: FUROSEMIDE 40 MG/4 ML IV SCH ×3 (06:23→20:16)
[2017-12-10] MEDS: ASCORBIC ACID 500 MG TABLET PO SCH (08:22)
[2017-12-10] MEDS: FERROUS GLUCONATE 324 MG TABLET PO SCH (08:22)
[2017-12-10] MEDS: AMIODARONE 200 MG TABLET PO SCH (08:22)
[2017-12-10] MEDS: RIVAROXABAN 20 MG TABLET PO SCH (08:22)
[2017-12-10] MEDS: FLUTICASONE/VILANTEROL 200-25MCG/INH INH SCH (10:21)
[2017-12-10] MEDS ORDERED: ROPINIROLE 1MG TABLET PO PRN ×2 (10:30)
[2017-12-10 13:45] VITALS: BP 116/70
[2017-12-10] MEDS ORDERED: LORazepam 0.5MG TABLET ONE (14:09)
[2017-12-10] MEDS ORDERED: LORazepam 0.5MG TABLET PO PRN (14:30)
[2017-12-10 14:50] LABS: O2 FLOW 3 L/min
[2017-12-10] MEDS ORDERED: ALBUTEROL SULFATE 2.5 MG/3 ML NPPB PRN (15:30)
[2017-12-10 17:07] LABS: MICROSCOPIC INDICATED
[2017-12-10 17:08] LABS: CULTURE INDICATED? YES
[2017-12-10 19:23] VITALS: BP 129/78
[2017-12-10] MEDS: CEFTRIAXONE PMX 1GM/50ML 50 ML IV SCH (19:47)
[2017-12-10] MEDS: SIMVASTATIN 20 MG TABLET PO SCH (20:16)
[2017-12-10] MEDS ORDERED: TRAZODONE 50MG TABLET PO PRN (21:00)
[2017-12-11 01:01] VITALS: BP 105/60
[2017-12-11] MEDS: IPRATROPIUM 0.5 MG/2.5 ML INHA NPPB SCH ×4 (01:53→20:26)
[2017-12-11 05:30] LABS: BASOPHILS # (AUTO) 0.03 x10^3/uL (0-0.1); BASOPHILS % (AUTO) 0 % (0-1); EOSINOPHILS % (AUTO) 1 % (1-7); LYMPHOCYTES # (AUTO) 0.82 x10^3/uL (1-3.4); LYMPHOCYTES % (AUTO) 10 % (22-44); MD NO; MEAN CORPUSCULAR HEMOGLOBIN 28.7 pg (27.5-34.5); MEAN CORPUSCULAR VOLUME 89.7 fL (81-97); MEAN PLATELET VOLUME 8.9 fL (7.4-10.4); MONOCYTES # (AUTO) 1.12 x10^3/uL (0.2-0.8); MONOCYTES % (AUTO) 13 % (2-9); NEUTROPHILS # (AUTO) 6.41 x10^3/uL (1.8-6.8); NEUTROPHILS % (AUTO) 76 % (42-75); PLATELET COUNT 196 x10^3/uL (130-400); RED BLOOD COUNT 4.15 x10^6/uL (4.38-5.82); RED CELL DISTRIBUTION WIDTH 16.8 % (9.4-14.8)
[2017-12-11 05:40] LABS: ALBUMIN 2.9 g/dL (3.4-5.0); ANION GAP 7 mmol/L (5-15); CALCIUM 8.4 mg/dL (8.5-10.1); CHLORIDE 107 mmol/L (98-107)
[2017-12-11 05:43] LABS: ALANINE AMINOTRANSFERASE 22 U/L (12-78); ALKALINE PHOSPHATASE 48 U/L (45-117); CREATININE 1.43 mg/dL (0.7-1.3)
[2017-12-11 07:30] VITALS: BP 109/78
[2017-12-11] MEDS: AMIODARONE 200 MG TABLET PO SCH (07:43)
[2017-12-11] MEDS: OMEPRAZOLE 20 MG CAPSULE.DR PO SCH (07:43)
[2017-12-11] MEDS: RIVAROXABAN 20 MG TABLET PO SCH (07:43)
[2017-12-11] MEDS ORDERED: FUROSEMIDE 40 MG/4 ML IV SCH (09:00)
[2017-12-11] MEDS: FLUTICASONE/VILANTEROL 200-25MCG/INH INH SCH (10:18)
[2017-12-11] MEDS: POTASSIUM CHLORIDE 20 MEQ TAB.ER.PRT PO SCH ×2 (10:18→17:31)
[2017-12-11] MEDS: FERROUS GLUCONATE 324 MG TABLET PO SCH (10:18)
[2017-12-11] MEDS: ASCORBIC ACID 500 MG TABLET PO SCH (10:18)
[2017-12-11 13:54] VITALS: BP 89/54
[2017-12-11] MEDS: RIVAROXABAN 15 MG TABLET PO SCH (17:00)
[2017-12-11 17:15] VITALS: BP 109/68
[2017-12-11] MEDS: TORSEMIDE 20 MG TABLET PO SCH (17:31)
[2017-12-11 18:49] VITALS: BP 103/56
[2017-12-11] MEDS: CEFTRIAXONE PMX 1GM/50ML 50 ML IV SCH (19:40)
[2017-12-11] MEDS: SIMVASTATIN 20 MG TABLET PO SCH (19:40)
[2017-12-12 00:51] VITALS: BP 126/74
[2017-12-12 05:06] LABS: BASOPHILS # (AUTO) 0.03 x10^3/uL (0-0.1); BASOPHILS % (AUTO) 0 % (0-1); EOSINOPHILS # (AUTO) 0.14 x10^3/uL (0-0.4); EOSINOPHILS % (AUTO) 2 % (1-7); LYMPHOCYTES # (AUTO) 0.77 x10^3/uL (1-3.4); LYMPHOCYTES % (AUTO) 10 % (22-44); MD NO; MEAN CORPUSCULAR HEMOGLOBIN 28.9 pg (27.5-34.5); MEAN CORPUSCULAR HGB CONC 32.4 g/dL (33.2-36.2); MEAN CORPUSCULAR VOLUME 89.2 fL (81-97); MEAN PLATELET VOLUME 9.4 fL (7.4-10.4); MONOCYTES # (AUTO) 1.14 x10^3/uL (0.2-0.8); MONOCYTES % (AUTO) 15 % (2-9); NEUTROPHILS # (AUTO) 5.79 x10^3/uL (1.8-6.8); NEUTROPHILS % (AUTO) 74 % (42-75); PLATELET COUNT 204 x10^3/uL (130-400); RED BLOOD COUNT 4.28 x10^6/uL (4.38-5.82)
[2017-12-12 05:16] LABS: CHLORIDE 108 mmol/L (98-107)
[2017-12-12 05:22] LABS: % IRON SATURATION 11 % (20-55); ALANINE AMINOTRANSFERASE 24 U/L (12-78); ALBUMIN 2.9 g/dL (3.4-5.0); ALKALINE PHOSPHATASE 50 U/L (45-117); ANION GAP 8 mmol/L (5-15); BILIRUBIN,TOTAL 0.7 mg/dL (0.2-1.0); CALCIUM 8.9 mg/dL (8.5-10.1); CREATININE 1.52 mg/dL (0.7-1.3); IRON LEVEL 30 mcg/dL (65-175); TOTAL IRON BINDING CAPACITY 273 mcg/dL (250-450); TOTAL PROTEIN 7.2 g/dL (6.4-8.2)
[2017-12-12] MEDS ORDERED: METOPROLOL SUCCINATE 25 MG TAB.ER.24H PO SCH (06:00)
[2017-12-12 07:33] VITALS: BP 125/69
[2017-12-12] MEDS: POTASSIUM CHLORIDE 20 MEQ TAB.ER.PRT PO SCH (07:36)
[2017-12-12] MEDS: OMEPRAZOLE 20 MG CAPSULE.DR PO SCH (07:37)
[2017-12-12] MEDS: AMIODARONE 200 MG TABLET PO SCH (07:37)
[2017-12-12] MEDS: ASCORBIC ACID 500 MG TABLET PO SCH (07:37)
[2017-12-12] MEDS ORDERED: POTASSIUM CHLORIDE 20 MEQ TAB.ER.PRT PO ONE (09:00)
[2017-12-12] MEDS ORDERED: POTASSIUM CHLORIDE 20 MEQ TAB.ER.PRT PO SCH (09:00)
[2017-12-12] MEDS: IPRATROPIUM 0.5 MG/2.5 ML INHA NPPB SCH ×2 (09:35→11:30)
[2017-12-12] MEDS: FERROUS GLUCONATE 324 MG TABLET PO SCH (10:30)
[2017-12-12] MEDS: TORSEMIDE 20 MG TABLET PO SCH ×2 (10:30→14:48)
[2017-12-12] MEDS: FLUTICASONE/VILANTEROL 200-25MCG/INH INH SCH (10:31)
[2017-12-12] MEDS ORDERED: TORS20TA PO (11:51)
[2017-12-12] MEDS ORDERED: METO25TA91 PO (11:51)
[2017-12-12] MEDS ORDERED: AMOX1TAB64 PO (11:51)
[2017-12-12] MEDS ORDERED: AMOXICILLIN/CLAV 875-125MG TABLET PO SCH (12:00)
[2017-12-12] MEDS: RIVAROXABAN 15 MG TABLET PO SCH (14:48)
== END 2017-12-12 15:45 | disposition home health service (06) | DRG 291 ==
LOC: ED 14:11 → EDIP 15:34 → 5SO 17:20
PROVIDERS: ADMIT Family Medicine; ATTEND Family Medicine
DX: I13.0 Hypertensive heart and chronic kidney disease with heart failure and stage 1 through stage 4 chronic kidney disease, or unspecified chronic kidney disease (principal); I50.43 Acute on chronic combined systolic (congestive) and diastolic (congestive) heart failure; I31.3 Pericardial effusion (noninflammatory); E44.1 Mild protein-calorie malnutrition; E87.0 Hyperosmolality and hypernatremia; D68.59 Other primary thrombophilia; N39.0 Urinary tract infection, site not specified; N17.9 Acute kidney failure, unspecified; J96.11 Chronic respiratory failure with hypoxia; D64.9 Anemia, unspecified; E87.6 Hypokalemia; G47.33 Obstructive sleep apnea (adult) (pediatric); I08.1 Rheumatic disorders of both mitral and tricuspid valves; E66.9 Obesity, unspecified; I27.29 Other secondary pulmonary hypertension; I27.81 Cor pulmonale (chronic); I48.2 Chronic atrial fibrillation; J44.9 Chronic obstructive pulmonary disease, unspecified; N18.3 Chronic kidney disease, stage 3 (moderate); Z79.01 Long term (current) use of anticoagulants; Z95.0 Presence of cardiac pacemaker; Z99.81 Dependence on supplemental oxygen; Z90.49 Acquired absence of other specified parts of digestive tract; Z68.32 Body mass index [BMI] 32.0-32.9, adult
CPT/HCPCS: 36415; 36600; 70450; 71045; 80048; 80053; 81001; 82803; 83540; 83550; 83735; 83880; 84439; 84443; 84484; 85025; 85610; 85730; 87086; 93005; 93306; 94640; 96374; 99285; G0378; J0696; J1940; J7613; J7644

== ENCOUNTER → 2018-02-17 | Outpatient (CLI) | payer MEDICARE ==
[~2018-02-17] MED LIST changes: +AMOX1TAB64 PO; +METR-142 PO; -METR500T8 PO; +TORS20TA PO
== END | disposition home or self-care (01) ==
LOC: CFH 14:00
PROVIDERS: ATTEND Internal Medicine Cardiovascular Disease
DX: I08.1 Rheumatic disorders of both mitral and tricuspid valves (principal); I31.3 Pericardial effusion (noninflammatory); I70.0 Atherosclerosis of aorta; Z87.891 Personal history of nicotine dependence
CPT/HCPCS: 93306

== ENCOUNTER → 2018-03-18 | Outpatient (CLI) | payer MEDICARE ==
[~2018-03-18] MED LIST changes: -METR-142 PO; +METR-90 PO
[2018-03-18 16:24] LABS: BASOPHILS # (AUTO) 0.04 x10^3/uL (0-0.1); BASOPHILS % (AUTO) 1 % (0-1); EOSINOPHILS # (AUTO) 0.07 x10^3/uL (0-0.4); EOSINOPHILS % (AUTO) 1 % (1-7); LYMPHOCYTES # (AUTO) 0.72 x10^3/uL (1-3.4); LYMPHOCYTES % (AUTO) 11 % (22-44); MD NO; MEAN CORPUSCULAR HEMOGLOBIN 27.1 pg (27.5-34.5); MEAN CORPUSCULAR HGB CONC 31.1 g/dL (33.2-36.2); MEAN CORPUSCULAR VOLUME 87.3 fL (81-97); MEAN PLATELET VOLUME 8.4 fL (7.4-10.4); MONOCYTES % (AUTO) 18 % (2-9); NEUTROPHILS # (AUTO) 4.57 x10^3/uL (1.8-6.8); NEUTROPHILS % (AUTO) 69 % (42-75); PLATELET COUNT 303 x10^3/uL (130-400); RED CELL DISTRIBUTION WIDTH 16.7 % (9.4-14.8)
[2018-03-18 16:45] LABS: ANION GAP 6 mmol/L (5-15); CALCIUM 8.5 mg/dL (8.5-10.1); CHLORIDE 105 mmol/L (98-107)
[2018-03-18 16:50] LABS: CREATININE 1.98 mg/dL (0.7-1.3)
== END | disposition home or self-care (01) ==
LOC: CFH 15:03
PROVIDERS: ATTEND Internal Medicine Cardiovascular Disease
DX: I13.0 Hypertensive heart and chronic kidney disease with heart failure and stage 1 through stage 4 chronic kidney disease, or unspecified chronic kidney disease (principal); I50.30 Unspecified diastolic (congestive) heart failure; N18.3 Chronic kidney disease, stage 3 (moderate); D64.9 Anemia, unspecified; R60.9 Edema, unspecified
CPT/HCPCS: 36415; 80048; 83880; 85025

== ENCOUNTER 2018-04-06 09:39 | Day surgery (SDC) | payer MEDICARE ==
[~2018-04-06] VITALS: Ht 182.9 cm; Wt 109.1 kg
[2018-04-06 10:12] VITALS: BP 104/66
[2018-04-06] MEDS ORDERED: PLEASE ENTER HEIGHT AND WEIGHT MC SCH (10:30)
[2018-04-06] MEDS ORDERED: SODIUM CHLORIDE 0.9% 1,000 ML IV SCH (10:30)
[2018-04-06] MEDS ORDERED: GABA600T7 PO (10:39)
[2018-04-06] MEDS ORDERED: FLUT1BLS3 INH (10:39)
[2018-04-06] MEDS ORDERED: PROPOFOL 10 MG/ML, 20ML ONE (12:11)
[2018-04-06] MEDS ORDERED: ALBUTEROL SULFATE 2.5 MG/3 ML ONE (12:29)
[2018-04-06] MEDS ORDERED: ALBUTEROL SULFATE 2.5 MG/3 ML NPPB PRN (13:00)
== END 2018-04-06 14:51 | disposition home or self-care (01) ==
LOC: CACL 09:39
PROVIDERS: ATTEND Internal Medicine Cardiovascular Disease
DX: I34.0 Nonrheumatic mitral (valve) insufficiency (principal); I31.3 Pericardial effusion (noninflammatory); I48.2 Chronic atrial fibrillation; I10 Essential (primary) hypertension; J44.9 Chronic obstructive pulmonary disease, unspecified; E78.5 Hyperlipidemia, unspecified; I45.19 Other right bundle-branch block; D64.9 Anemia, unspecified; Z87.891 Personal history of nicotine dependence; Z95.0 Presence of cardiac pacemaker; Z79.899 Other long term (current) drug therapy
CPT/HCPCS: 93312; 93321; 93325; 94640; J2704; J7613

== ENCOUNTER 2018-04-18 03:54 | Inpatient (IN) | payer MEDICARE ==
[~2018-04-18] VITALS: Ht 182.9 cm; Wt 101.4 kg
[2018-04-18] VITALS (7 sets, daily range): BP systolic 103–119; BP diastolic 41–70
[~2018-04-18 03:54] MED LIST changes: +FLUT1BLS3 INH; +GABA600T7 PO
--- NOTE | 2018-04-18 04:10 | NUR ---
78 Y/O MALE BIB [facility] FOR INCREASE IN WEAKNESS OVER THE PAST FEW DAYS. PT REPORTS A HX OF CHF AND HAS HAD INCREASED EDEMA IN LOWER EXTREMITIES THE PAST FEW DAYS. PT HAS INCREASED HIS TORSEMIDE THE PAST 2 DAYS FROM 40MG TO 80MG WITHOUT RELIEF. PT IS ON HOME O2 @ 2LPM DAILY HOWEVER HAS NEEDED TO INCREASE HIS O2 TO 4 LPM. HX OF CHF, COPD, PACEMAKER. EMS FOUND PT TO BE FEBRILE AT 100.4, THEY ADMINISTERED 500MG OF TYLENOL PO. PT AFEBRILE UPON ARRIVAL. ALL MONITORING EQUIPMENT APPLIED, SHOWING PACED RHYTHM ON THE MONITOR. VITALS STABLE. WILL CONTINUE TO MONITOR.
[2018-04-18] MEDS ORDERED: ACETAMINOPHEN 325 MG TABLET PO ONE (05:00)
[2018-04-18] MEDS ORDERED: SODIUM CHLORIDE 0.9% 1,000ML IVBOLUS ONE (05:00)
[2018-04-18] MEDS ORDERED: SODIUM CHLORIDE FLUSH 10ML SYR IVF ONE (05:00)
[2018-04-18] MEDS ORDERED: ACETAMINOPHEN 325 MG TABLET ONE (05:24)
[2018-04-18 05:27] LABS: MICROSCOPIC INDICATED
[2018-04-18 05:28] LABS: CULTURE INDICATED? YES
--- NOTE | 2018-04-18 05:30 | NUR ---
REPORT FROM JACKIE COE. PT MEDICATED AND FLUIDS RUNNING. UA SENT TO LAB. LAB AT BEDSIDE
[2018-04-18 05:36] LABS: MEAN CORPUSCULAR HEMOGLOBIN 25.2 pg (27.5-34.5); MEAN CORPUSCULAR HGB CONC 31.3 g/dL (33.2-36.2); MEAN CORPUSCULAR VOLUME 80.6 fL (81-97); MEAN PLATELET VOLUME 8.6 fL (7.4-10.4); PLATELET COUNT 235 x10^3/uL (130-400); RED BLOOD COUNT 2.73 x10^6/uL (4.38-5.82); RED CELL DISTRIBUTION WIDTH 16.2 % (9.4-14.8)
--- NOTE | 2018-04-18 05:42 | NUR ---
HCT AND HGB LOW. NOTIFIED.
[2018-04-18 05:45] LABS: ALANINE AMINOTRANSFERASE 14 U/L (12-78); ALBUMIN 2.8 g/dL (3.4-5.0); ANION GAP 5 mmol/L (5-15); CALCIUM 8.1 mg/dL (8.5-10.1); CHLORIDE 112 mmol/L (98-107); CREATININE 2.48 mg/dL (0.7-1.3)
[2018-04-18 05:50] LABS: ALKALINE PHOSPHATASE 46 U/L (45-117); BILIRUBIN,TOTAL 0.5 mg/dL (0.2-1.0); TOTAL PROTEIN 6.5 g/dL (6.4-8.2)
[2018-04-18 05:59] LABS: BASOPHILS # (AUTO) 0.01 x10^3/uL (0-0.1); BASOPHILS % (AUTO) 0 % (0-1); EOSINOPHILS % (AUTO) 0 % (1-7); LYMPHOCYTES % (AUTO) 9 % (22-44); MD MORPH REVIEW ONLY; MONOCYTES # (AUTO) 1.32 x10^3/uL (0.2-0.8); MONOCYTES % (AUTO) 18 % (2-9); NEUTROPHILS # (AUTO) 5.46 x10^3/uL (1.8-6.8); NEUTROPHILS % (AUTO) 73 % (42-75)
[2018-04-18 06:00] LABS: ANISOCYTOSIS 1+; HYPOCHROMIA 2+; MICROCYTOSIS 1+; OVALOCYTES 1+; POLYCHROMASIA 1+
[2018-04-18 06:01] LABS: ECHINOCYTES 1+
[2018-04-18 06:02] LABS: SCHISTOCYTES 1+
[2018-04-18 06:03] LABS: <PLATELET ESTIMATE> ADEQUATE; <PLT MORPHOLOGY> NORMAL PLT MORPH
[2018-04-18 06:23] LABS: INTERNATIONAL NORMALIZED RATIO 1.92 (0.93-1.1); PROTHROMBIN TIME 19.7 Seconds (9.6-11.5)
[2018-04-18 06:29] LABS: RAPID INFLUENZA A Negative (Negative); RAPID INFLUENZA B Negative (Negative)
[2018-04-18] MEDS ORDERED: ALBUTEROL/IPRATROPIUM 2.5MG/0.5MG, 3 ML NPPB ONE (06:30)
[2018-04-18] MEDS ORDERED: ALBUTEROL/IPRATROPIUM 2.5MG/0.5MG, 3 ML ONE ×2 (06:36→11:23)
--- NOTE | 2018-04-18 07:34 | NUR ---
Pt has been seen by hospitalist & is aware of POC. Pt states he feels weak but no CP or SOB. Repositioned into sitting position on side of bed- agrees he will not try to stand or walk w/out assistance. Risks/benefits blood transfusion explained by Dr. Winter-will have pt sign consent & blood is ready. pt & updated.
--- NOTE | 2018-04-18 07:35 | NUR ---
dr hurley spoke with sue serrano
--- NOTE | 2018-04-18 07:57 | NUR ---
Report to SARAVANAN Starks. Pt has shingles so he will need a private room- transport will be delayed until private room is ready.
[2018-04-18] MEDS ORDERED: LABETALOL 5MG/ML, 20ML IVPush PRN (08:00)
[2018-04-18] MEDS ORDERED: PHARMACY MAY ADJ FOR RENAL FX MC PRN (08:00)
[2018-04-18] MEDS ORDERED: BISACODYL 10 MG SUPP PR PRN (08:00)
[2018-04-18] MEDS ORDERED: PANTOPRAZOLE 40 MG IV IVPush SCH (08:00)
[2018-04-18] MEDS ORDERED: FUROSEMIDE 40 MG/4 ML IV ONE (08:00)
[2018-04-18] MEDS ORDERED: POLYETHYLENE GLYCOL 17 GM PACKET PO PRN (08:00)
[2018-04-18] MEDS ORDERED: DOCUSATE 100 MG CAPSULE PO PRN (08:00)
[2018-04-18] MEDS ORDERED: hydrALAzine 20 MG/ML, 1ML IVPush PRN (08:00)
--- NOTE | 2018-04-18 08:00 | NUR ---
Discoloration on L anterior thigh where lesions were are healed but pt still reports pain in area from shingles.
--- NOTE | 2018-04-18 08:34 | NUR ---
1st set V/S after transfusion started documented. Pt exhibits no side effects at this time, VSS. Await tele bed.
[2018-04-18] MEDS: RIVAROXABAN 15 MG TABLET PO SCH (09:00)
[2018-04-18] MEDS: AMIODARONE 200 MG TABLET PO SCH (09:00)
[2018-04-18] MEDS: GABAPENTIN 300 MG CAPSULE PO SCH ×3 (09:00→22:10)
--- NOTE | 2018-04-18 09:10 | NUR ---
Consult by human resources training manager complete, breakfast tray delivered. Awaiting tele bed.
--- NOTE | 2018-04-18 10:05 | NUR ---
No tele bed available. Pt resting comfortably, @ BS. VSS.
[2018-04-18] MEDS ORDERED: FUROSEMIDE 40 MG/4 ML ONE (10:51)
[2018-04-18] MEDS ORDERED: PANTOPRAZOLE 40 MG IV ONE (10:51)
--- NOTE | 2018-04-18 10:55 | NUR ---
Meds ordered from pharmacy
[2018-04-18] MEDS: ALBUTEROL/IPRATROPIUM 2.5MG/0.5MG, 3 ML NPPB SCH ×3 (11:00→20:00)
[2018-04-18] MEDS ORDERED: AMIODARONE 200 MG TABLET ONE (11:14)
[2018-04-18] MEDS ORDERED: GABAPENTIN 300 MG CAPSULE ONE (11:14)
[2018-04-18] MEDS: FERROUS GLUCONATE 324 MG TABLET PO SCH (11:15)
--- NOTE | 2018-04-18 11:21 | NUR ---
Blood transfusion complete. Awaiting rm [id number] to be cleaned. Pt & aware.
--- NOTE | 2018-04-18 12:08 | NUR ---
Pt transported to telemetry.
[2018-04-18 15:10] LABS: MD YES; MEAN CORPUSCULAR HEMOGLOBIN 25.1 pg (27.5-34.5); MEAN CORPUSCULAR HGB CONC 30.9 g/dL (33.2-36.2); MEAN CORPUSCULAR VOLUME 81.3 fL (81-97); MEAN PLATELET VOLUME 8.4 fL (7.4-10.4); PLATELET COUNT 235 x10^3/uL (130-400); RED BLOOD COUNT 2.99 x10^6/uL (4.38-5.82); RED CELL DISTRIBUTION WIDTH 16.2 % (9.4-14.8)
[2018-04-18 15:26] LABS: BAND#(MANUAL) 0.13 x10^3/uL; BANDS%(MANUAL) 2 % (0-7); BASOS#(MANUAL) 0.34 x10^3/uL (0-0.1); BASOS% (MANUAL) 5 % (0-1); LYMPH#(MANUAL) 0.47 x10^3/uL (1-3.4); LYMPHS% (MANUAL) 7 % (22-44); MONOS% (MANUAL) 12 % (2-9); REACTIVE LYMPHS # (MANUAL) 0.13 x10^3/uL (0-0); REACTIVE LYMPHS % (MANUAL) 2 % (0-0); SEG#(MANUAL) 4.82 x10^3/uL (1.8-6.8); SEGS% (MANUAL) 72 % (42-75)
[2018-04-18 15:27] LABS: ANISOCYTOSIS 1+
[2018-04-18 15:28] LABS: HYPOCHROMIA 2+; MICROCYTOSIS 1+; OVALOCYTES 1+; POLYCHROMASIA 1+
[2018-04-18 15:29] LABS: SCHISTOCYTES 1+; TEAR DROPS 1+
[2018-04-18 15:30] LABS: <PLATELET ESTIMATE> ADEQUATE; <PLT MORPHOLOGY> NORMAL PLT MORPH; ECHINOCYTES 1+
[2018-04-18] MEDS: PANTOPROZOLE 40MG TABLET PO SCH (17:03)
[2018-04-18] MEDS: BUDESONIDE 0.5 MG/2 ML INHA INH SCH (20:17)
[2018-04-18] MEDS: FUROSEMIDE 40 MG/4 ML IV SCH (22:10)
[2018-04-18] MEDS: SIMVASTATIN 20 MG TABLET PO SCH (22:10)
[2018-04-19 01:03] VITALS: BP 120/62
[2018-04-19 05:30] LABS: MEAN CORPUSCULAR HEMOGLOBIN 25.3 pg (27.5-34.5); MEAN CORPUSCULAR HGB CONC 30.9 g/dL (33.2-36.2); MEAN CORPUSCULAR VOLUME 81.7 fL (81-97); MEAN PLATELET VOLUME 8.9 fL (7.4-10.4); PLATELET COUNT 222 x10^3/uL (130-400); RED BLOOD COUNT 3.02 x10^6/uL (4.38-5.82); RED CELL DISTRIBUTION WIDTH 16.3 % (9.4-14.8)
[2018-04-19 05:44] LABS: CHLORIDE 111 mmol/L (98-107)
[2018-04-19 05:52] VITALS: BP 114/59
[2018-04-19 05:53] LABS: ALANINE AMINOTRANSFERASE 14 U/L (12-78); ALBUMIN 2.8 g/dL (3.4-5.0); ALKALINE PHOSPHATASE 46 U/L (45-117); ANION GAP 7 mmol/L (5-15); BILIRUBIN,TOTAL 0.8 mg/dL (0.2-1.0); CALCIUM 8.4 mg/dL (8.5-10.1); CHOL/HDL RATIO 2.5; CHOLESTEROL, TOTAL 77 mg/dL (140-239); CREATININE 2.24 mg/dL (0.7-1.3); HDL CHOL % 40 % (26-37); HDL CHOLESTEROL (DIRECT) 31 mg/dL (40-60); LDL CHOLESTEROL,CALCULATED 38 mg/dL (54-169); LDL/HDL RATIO 1.2 (0.5-3.0); TOTAL PROTEIN 6.7 g/dL (6.4-8.2); TRIGLYCERIDES 41 mg/dL (50-200); VLDL CHOLESTEROL 8 mg/dL (0-25)
[2018-04-19 05:58] LABS: BASOPHILS # (AUTO) 0.05 x10^3/uL (0-0.1); BASOPHILS % (AUTO) 1 % (0-1); EOSINOPHILS # (AUTO) 0.21 x10^3/uL (0-0.4); EOSINOPHILS % (AUTO) 2 % (1-7); LYMPHOCYTES # (AUTO) 0.78 x10^3/uL (1-3.4); LYMPHOCYTES % (AUTO) 8 % (22-44); MD MORPH REVIEW ONLY; MONOCYTES # (AUTO) 1.53 x10^3/uL (0.2-0.8); MONOCYTES % (AUTO) 16 % (2-9); NEUTROPHILS # (AUTO) 7.01 x10^3/uL (1.8-6.8); NEUTROPHILS % (AUTO) 73 % (42-75)
[2018-04-19 05:59] LABS: ANISOCYTOSIS 1+; HYPOCHROMIA 2+; MICROCYTOSIS 1+; POLYCHROMASIA 1+
[2018-04-19 06:00] LABS: OVALOCYTES 1+; SCHISTOCYTES 1+
[2018-04-19] MEDS: METOPROLOL SUCCINATE 25 MG TAB.ER.24H PO SCH (06:00)
[2018-04-19] MEDS: PANTOPROZOLE 40MG TABLET PO SCH ×2 (06:00→16:29)
[2018-04-19 06:01] LABS: <PLATELET ESTIMATE> ADEQUATE; <PLT MORPHOLOGY> NORMAL PLT MORPH
[2018-04-19] MEDS: BUDESONIDE 0.5 MG/2 ML INHA INH SCH ×2 (06:43→19:40)
[2018-04-19] MEDS: ALBUTEROL/IPRATROPIUM 2.5MG/0.5MG, 3 ML NPPB SCH ×4 (06:43→19:40)
[2018-04-19 07:06] VITALS: BP 104/51
[2018-04-19] MEDS: GABAPENTIN 300 MG CAPSULE PO SCH ×3 (08:07→20:47)
[2018-04-19] MEDS: FERROUS GLUCONATE 324 MG TABLET PO SCH (08:07)
[2018-04-19] MEDS: FUROSEMIDE 40 MG/4 ML IV SCH ×2 (08:08→20:47)
[2018-04-19] MEDS: AMIODARONE 200 MG TABLET PO SCH (08:08)
[2018-04-19] MEDS: RIVAROXABAN 15 MG TABLET PO SCH (08:08)
[2018-04-19] MEDS: SUCRALFATE 1 GM/10 ML UDC PO SCH ×3 (11:47→20:47)
[2018-04-19 13:10] VITALS: BP 102/60
[2018-04-19 20:21] VITALS: BP 111/65
[2018-04-19] MEDS: SIMVASTATIN 20 MG TABLET PO SCH (20:47)
[2018-04-20 01:25] VITALS: BP 112/69
[2018-04-20 02:53] LABS: OCCULT BLOOD POSITIVE (NEGATIVE)
[2018-04-20 05:43] LABS: BASOPHILS # (AUTO) 0.05 x10^3/uL (0-0.1); BASOPHILS % (AUTO) 1 % (0-1); EOSINOPHILS # (AUTO) 0.14 x10^3/uL (0-0.4); EOSINOPHILS % (AUTO) 2 % (1-7); LYMPHOCYTES # (AUTO) 0.65 x10^3/uL (1-3.4); LYMPHOCYTES % (AUTO) 8 % (22-44); MD NO; MEAN CORPUSCULAR HEMOGLOBIN 25.4 pg (27.5-34.5); MEAN CORPUSCULAR HGB CONC 31.4 g/dL (33.2-36.2); MEAN CORPUSCULAR VOLUME 80.9 fL (81-97); MEAN PLATELET VOLUME 8.9 fL (7.4-10.4); MONOCYTES # (AUTO) 1.43 x10^3/uL (0.2-0.8); MONOCYTES % (AUTO) 17 % (2-9); NEUTROPHILS % (AUTO) 74 % (42-75); PLATELET COUNT 212 x10^3/uL (130-400); RED BLOOD COUNT 2.92 x10^6/uL (4.38-5.82); RED CELL DISTRIBUTION WIDTH 16.5 % (9.4-14.8)
[2018-04-20 05:48] LABS: ALBUMIN 2.9 g/dL (3.4-5.0); ANION GAP 5 mmol/L (5-15); CALCIUM 8.6 mg/dL (8.5-10.1); CHLORIDE 113 mmol/L (98-107)
[2018-04-20 05:54] LABS: ALANINE AMINOTRANSFERASE 16 U/L (12-78); ALKALINE PHOSPHATASE 42 U/L (45-117); CREATININE 2.06 mg/dL (0.7-1.3); TOTAL PROTEIN 6.7 g/dL (6.4-8.2)
[2018-04-20] MEDS: PANTOPROZOLE 40MG TABLET PO SCH ×2 (06:33→17:03)
[2018-04-20] MEDS: METOPROLOL SUCCINATE 25 MG TAB.ER.24H PO SCH (06:34)
[2018-04-20 06:42] VITALS: BP 92/54
[2018-04-20] MEDS ORDERED: VANCOMYCIN PER PHARMACY MC PRN (07:00)
[2018-04-20] MEDS ORDERED: PHARMACOKINETIC CONSULTATION MC ONE (07:00)
[2018-04-20] MEDS ORDERED: PHARMACOKINETIC MONITORING MC PRN (07:00)
[2018-04-20] MEDS ORDERED: PHARMACY MAY ADJ FOR RENAL FX MC PRN (07:00)
[2018-04-20] MEDS: ALBUTEROL/IPRATROPIUM 2.5MG/0.5MG, 3 ML NPPB SCH ×4 (07:28→20:00)
[2018-04-20] MEDS: GABAPENTIN 300 MG CAPSULE PO SCH ×4 (07:53→21:18)
[2018-04-20] MEDS: SUCRALFATE 1 GM/10 ML UDC PO SCH ×5 (07:53→21:17)
[2018-04-20] MEDS: AMIODARONE 200 MG TABLET PO SCH ×2 (07:53→09:32)
[2018-04-20] MEDS: FERROUS GLUCONATE 324 MG TABLET PO SCH ×2 (07:53→09:32)
[2018-04-20 07:55] VITALS: BP 97/55
[2018-04-20] MEDS: FUROSEMIDE 40 MG/4 ML IV SCH ×2 (07:59→21:17)
[2018-04-20] MEDS: VANCOMYCIN 1,800 MG in SODIUM CHLORIDE 0.9% 250 ML IV SCH (08:00)
[2018-04-20] MEDS: BUDESONIDE 0.5 MG/2 ML INHA INH SCH ×2 (10:58→21:00)
[2018-04-20] MEDS ORDERED: SODIUM CHLORIDE 0.9% 1,000 ML IV SCH (11:00)
[2018-04-20 13:17] VITALS: BP 102/62
[2018-04-20] MEDS: SIMVASTATIN 20 MG TABLET PO SCH (21:17)
[2018-04-20 21:25] VITALS: BP 101/72
[2018-04-21 03:59] VITALS: BP 102/55
[2018-04-21 05:36] LABS: BASOPHILS # (AUTO) 0.03 x10^3/uL (0-0.1); BASOPHILS % (AUTO) 0 % (0-1); EOSINOPHILS # (AUTO) 0.33 x10^3/uL (0-0.4); EOSINOPHILS % (AUTO) 5 % (1-7); LYMPHOCYTES # (AUTO) 0.66 x10^3/uL (1-3.4); LYMPHOCYTES % (AUTO) 9 % (22-44); MD NO; MEAN CORPUSCULAR HEMOGLOBIN 25.3 pg (27.5-34.5); MEAN CORPUSCULAR HGB CONC 31.3 g/dL (33.2-36.2); MEAN CORPUSCULAR VOLUME 80.9 fL (81-97); MEAN PLATELET VOLUME 8.8 fL (7.4-10.4); MONOCYTES # (AUTO) 1.02 x10^3/uL (0.2-0.8); MONOCYTES % (AUTO) 14 % (2-9); NEUTROPHILS # (AUTO) 5.15 x10^3/uL (1.8-6.8); NEUTROPHILS % (AUTO) 72 % (42-75); PLATELET COUNT 210 x10^3/uL (130-400); RED BLOOD COUNT 2.86 x10^6/uL (4.38-5.82); RED CELL DISTRIBUTION WIDTH 16.7 % (9.4-14.8)
[2018-04-21] MEDS: SUCRALFATE 1 GM/10 ML UDC PO SCH ×4 (05:38→20:13)
[2018-04-21] MEDS: PANTOPROZOLE 40MG TABLET PO SCH ×2 (05:38→17:05)
[2018-04-21] MEDS: METOPROLOL SUCCINATE 25 MG TAB.ER.24H PO SCH (05:38)
[2018-04-21 05:46] LABS: CHLORIDE 111 mmol/L (98-107)
[2018-04-21 05:55] LABS: ALANINE AMINOTRANSFERASE 15 U/L (12-78); ALBUMIN 2.6 g/dL (3.4-5.0); ALKALINE PHOSPHATASE 44 U/L (45-117); ANION GAP 6 mmol/L (5-15); BILIRUBIN,TOTAL 0.7 mg/dL (0.2-1.0); CALCIUM 8.4 mg/dL (8.5-10.1); CREATININE 1.79 mg/dL (0.7-1.3); TOTAL PROTEIN 6.6 g/dL (6.4-8.2)
[2018-04-21 07:32] VITALS: BP 108/66
[2018-04-21] MEDS: ALBUTEROL/IPRATROPIUM 2.5MG/0.5MG, 3 ML NPPB SCH ×2 (07:32→11:35)
[2018-04-21] MEDS: BUDESONIDE 0.5 MG/2 ML INHA INH SCH (07:32)
[2018-04-21] MEDS: GABAPENTIN 300 MG CAPSULE PO SCH ×3 (07:33→20:12)
[2018-04-21] MEDS: VANCOMYCIN 1,800 MG in SODIUM CHLORIDE 0.9% 250 ML IV SCH (07:33)
[2018-04-21] MEDS: FUROSEMIDE 40 MG/4 ML IV SCH (07:34)
[2018-04-21] MEDS: AMIODARONE 200 MG TABLET PO SCH (07:34)
[2018-04-21] MEDS: FERROUS GLUCONATE 324 MG TABLET PO SCH (07:34)
[2018-04-21] MEDS ORDERED: POTASSIUM CHLORIDE 20 MEQ TAB.ER.PRT PO ONE ×2 (08:30→15:00)
[2018-04-21] MEDS ORDERED: POTASSIUM CHLORIDE 20 MEQ TAB.ER.PRT ONE (08:34)
[2018-04-21 13:54] VITALS: BP 103/62
[2018-04-21 16:25] VITALS: BP 96/54
[2018-04-21 17:04] VITALS: BP 112/67
[2018-04-21] MEDS: TORSEMIDE 20 MG TABLET PO SCH (17:05)
[2018-04-21 18:47] VITALS: BP 112/69
[2018-04-21] MEDS: SIMVASTATIN 20 MG TABLET PO SCH (20:13)
[2018-04-22 00:31] VITALS: BP 106/68
[2018-04-22] MEDS: PANTOPROZOLE 40MG TABLET PO SCH ×2 (05:45→16:28)
[2018-04-22] MEDS: METOPROLOL SUCCINATE 25 MG TAB.ER.24H PO SCH (05:45)
[2018-04-22] MEDS: ACETAMINOPHEN 325 MG TABLET PO PRN ×2 (05:54→20:26)
[2018-04-22 06:12] LABS: CHLORIDE 110 mmol/L (98-107)
[2018-04-22 06:14] LABS: MEAN CORPUSCULAR HEMOGLOBIN 25.4 pg (27.5-34.5); MEAN CORPUSCULAR HGB CONC 31.4 g/dL (33.2-36.2); MEAN PLATELET VOLUME 9.2 fL (7.4-10.4); PLATELET COUNT 237 x10^3/uL (130-400); RED BLOOD COUNT 3.11 x10^6/uL (4.38-5.82); RED CELL DISTRIBUTION WIDTH 16.6 % (9.4-14.8)
[2018-04-22 06:20] LABS: ALANINE AMINOTRANSFERASE 18 U/L (12-78); ALBUMIN 2.8 g/dL (3.4-5.0); ALKALINE PHOSPHATASE 48 U/L (45-117); ANION GAP 7 mmol/L (5-15); BILIRUBIN,TOTAL 0.7 mg/dL (0.2-1.0); CALCIUM 8.4 mg/dL (8.5-10.1); CREATININE 1.96 mg/dL (0.7-1.3)
[2018-04-22 06:58] LABS: BASOPHILS # (AUTO) 0.02 x10^3/uL (0-0.1); BASOPHILS % (AUTO) 0 % (0-1); EOSINOPHILS # (AUTO) 0.13 x10^3/uL (0-0.4); EOSINOPHILS % (AUTO) 2 % (1-7); LYMPHOCYTES # (AUTO) 0.59 x10^3/uL (1-3.4); LYMPHOCYTES % (AUTO) 9 % (22-44); MD MORPH REVIEW ONLY; MONOCYTES # (AUTO) 0.86 x10^3/uL (0.2-0.8); MONOCYTES % (AUTO) 12 % (2-9); NEUTROPHILS # (AUTO) 5.35 x10^3/uL (1.8-6.8); NEUTROPHILS % (AUTO) 77 % (42-75)
[2018-04-22 06:59] LABS: ANISOCYTOSIS 1+; HYPOCHROMIA 1+; MICROCYTOSIS 1+; OVALOCYTES 1+; POLYCHROMASIA 1+
[2018-04-22 07:00] LABS: <PLATELET ESTIMATE> ADEQUATE; <PLT MORPHOLOGY> NORMAL PLT MORPH; SCHISTOCYTES 1+
[2018-04-22] MEDS: VANCOMYCIN 1,800 MG in SODIUM CHLORIDE 0.9% 250 ML IV SCH (08:01)
[2018-04-22] MEDS: SUCRALFATE 1 GM/10 ML UDC PO SCH ×4 (08:01→20:26)
[2018-04-22] MEDS: FERROUS GLUCONATE 324 MG TABLET PO SCH (08:02)
[2018-04-22] MEDS: TORSEMIDE 20 MG TABLET PO SCH ×2 (08:02→16:28)
[2018-04-22] MEDS: GABAPENTIN 300 MG CAPSULE PO SCH ×2 (08:02→20:26)
[2018-04-22] MEDS: AMIODARONE 200 MG TABLET PO SCH (08:02)
[2018-04-22 08:18] VITALS: BP 98/60
[2018-04-22] MEDS ORDERED: POTASSIUM CHLORIDE 20 MEQ TAB.ER.PRT PO ONE (08:30)
[2018-04-22 12:55] VITALS: BP 96/53
[2018-04-22 19:12] VITALS: BP 106/65
[2018-04-22] MEDS: SIMVASTATIN 20 MG TABLET PO SCH (20:26)
[2018-04-23 01:23] VITALS: BP 101/59
[2018-04-23 05:13] LABS: BASOPHILS # (AUTO) 0.03 x10^3/uL (0-0.1); BASOPHILS % (AUTO) 1 % (0-1); EOSINOPHILS # (AUTO) 0.32 x10^3/uL (0-0.4); EOSINOPHILS % (AUTO) 6 % (1-7); LYMPHOCYTES % (AUTO) 12 % (22-44); MD NO; MEAN CORPUSCULAR HEMOGLOBIN 25.2 pg (27.5-34.5); MEAN CORPUSCULAR HGB CONC 31.1 g/dL (33.2-36.2); MEAN PLATELET VOLUME 8.9 fL (7.4-10.4); MONOCYTES % (AUTO) 15 % (2-9); NEUTROPHILS # (AUTO) 3.98 x10^3/uL (1.8-6.8); NEUTROPHILS % (AUTO) 67 % (42-75); PLATELET COUNT 254 x10^3/uL (130-400); RED BLOOD COUNT 3.28 x10^6/uL (4.38-5.82); RED CELL DISTRIBUTION WIDTH 16.5 % (9.4-14.8)
[2018-04-23 05:24] LABS: ALBUMIN 2.8 g/dL (3.4-5.0); ANION GAP 5 mmol/L (5-15); CALCIUM 8.4 mg/dL (8.5-10.1); CHLORIDE 109 mmol/L (98-107)
[2018-04-23 05:29] LABS: ALANINE AMINOTRANSFERASE 17 U/L (12-78); ALKALINE PHOSPHATASE 52 U/L (45-117); BILIRUBIN,TOTAL 0.8 mg/dL (0.2-1.0); CREATININE 1.84 mg/dL (0.7-1.3); TOTAL PROTEIN 6.8 g/dL (6.4-8.2)
[2018-04-23] MEDS: METOPROLOL SUCCINATE 25 MG TAB.ER.24H PO SCH (06:04)
[2018-04-23] MEDS: PANTOPROZOLE 40MG TABLET PO SCH ×2 (06:04→17:35)
[2018-04-23] MEDS: ACETAMINOPHEN 325 MG TABLET PO PRN ×2 (07:17→20:56)
[2018-04-23 08:07] VITALS: BP 109/66
[2018-04-23] MEDS: AMIODARONE 200 MG TABLET PO SCH (09:56)
[2018-04-23] MEDS: SUCRALFATE 1 GM/10 ML UDC PO SCH ×4 (09:56→20:54)
[2018-04-23] MEDS: FERROUS GLUCONATE 324 MG TABLET PO SCH (09:58)
[2018-04-23] MEDS: TORSEMIDE 20 MG TABLET PO SCH ×2 (09:58→17:35)
[2018-04-23] MEDS: SULFAMETH./TRIMETHOPRIM DS 800MG/160MG TABLET PO SCH ×2 (09:59→20:54)
[2018-04-23] MEDS: GABAPENTIN 300 MG CAPSULE PO SCH ×2 (10:01→20:53)
[2018-04-23] MEDS: POTASSIUM CHLORIDE 20 MEQ TAB.ER.PRT PO SCH ×2 (10:01→17:35)
[2018-04-23 12:30] VITALS: BP 100/59
[2018-04-23 17:33] VITALS: BP 107/67
[2018-04-23 18:57] VITALS: BP 102/61
[2018-04-23] MEDS: SIMVASTATIN 20 MG TABLET PO SCH (20:54)
[2018-04-24 00:16] VITALS: BP 94/57
[2018-04-24 05:40] LABS: ALBUMIN 2.7 g/dL (3.4-5.0); ANION GAP 7 mmol/L (5-15); CALCIUM 8.6 mg/dL (8.5-10.1); CHLORIDE 108 mmol/L (98-107)
[2018-04-24 05:44] LABS: ALANINE AMINOTRANSFERASE 17 U/L (12-78); ALKALINE PHOSPHATASE 53 U/L (45-117); BILIRUBIN,TOTAL 0.7 mg/dL (0.2-1.0); CREATININE 2.04 mg/dL (0.7-1.3); TOTAL PROTEIN 6.9 g/dL (6.4-8.2)
[2018-04-24 06:14] VITALS: BP 105/67
[2018-04-24] MEDS: METOPROLOL SUCCINATE 25 MG TAB.ER.24H PO SCH (06:16)
[2018-04-24] MEDS: PANTOPROZOLE 40MG TABLET PO SCH ×2 (06:16→17:23)
[2018-04-24 07:47] VITALS: BP 93/57
[2018-04-24] MEDS: TORSEMIDE 20 MG TABLET PO SCH ×2 (09:12→17:25)
[2018-04-24] MEDS: SUCRALFATE 1 GM/10 ML UDC PO SCH ×4 (09:12→20:56)
[2018-04-24] MEDS: AMIODARONE 200 MG TABLET PO SCH (09:12)
[2018-04-24] MEDS: POTASSIUM CHLORIDE 20 MEQ TAB.ER.PRT PO SCH ×3 (09:13→20:57)
[2018-04-24] MEDS: GABAPENTIN 400 MG CAPSULE PO SCH (09:13)
[2018-04-24] MEDS: FERROUS GLUCONATE 324 MG TABLET PO SCH (09:14)
[2018-04-24] MEDS: DICLOXACILLIN 250 MG CAPSULE PO SCH ×2 (11:48→17:25)
[2018-04-24] MEDS: ACETAMINOPHEN 325 MG TABLET PO PRN ×2 (11:51→20:57)
[2018-04-24 12:55] VITALS: BP 86/48
[2018-04-24 17:26] VITALS: BP 97/61
[2018-04-24 19:12] VITALS: BP 94/62
[2018-04-24] MEDS: SIMVASTATIN 20 MG TABLET PO SCH (20:57)
[2018-04-25] MEDS: DICLOXACILLIN 250 MG CAPSULE PO SCH ×4 (00:10→18:17)
[2018-04-25 00:26] VITALS: BP 101/64
[2018-04-25 05:44] VITALS: BP 107/67
[2018-04-25] MEDS: METOPROLOL SUCCINATE 25 MG TAB.ER.24H PO SCH (05:44)
[2018-04-25] MEDS: PANTOPROZOLE 40MG TABLET PO SCH ×2 (05:46→17:16)
[2018-04-25 06:10] LABS: MEAN CORPUSCULAR HEMOGLOBIN 24.3 pg (27.5-34.5); MEAN CORPUSCULAR VOLUME 80.9 fL (81-97); PLATELET COUNT 314 x10^3/uL (130-400); RED BLOOD COUNT 3.79 x10^6/uL (4.38-5.82); RED CELL DISTRIBUTION WIDTH 17.1 % (9.4-14.8)
[2018-04-25 06:17] LABS: ANION GAP 7 mmol/L (5-15); CALCIUM 8.9 mg/dL (8.5-10.1); CHLORIDE 109 mmol/L (98-107)
[2018-04-25 06:21] LABS: ALANINE AMINOTRANSFERASE 17 U/L (12-78); ALKALINE PHOSPHATASE 53 U/L (45-117); BILIRUBIN,TOTAL 0.8 mg/dL (0.2-1.0); TOTAL PROTEIN 7.3 g/dL (6.4-8.2)
[2018-04-25 07:10] LABS: ALBUMIN 2.9 g/dL (3.4-5.0); ANION GAP 9 mmol/L (5-15); CHLORIDE 110 mmol/L (98-107); CREATININE 2.39 mg/dL (0.7-1.3)
[2018-04-25 07:50] LABS: MD YES
[2018-04-25 07:52] LABS: ANISOCYTOSIS 1+; BASOS#(MANUAL) 0.35 x10^3/uL (0-0.1); BASOS% (MANUAL) 6 % (0-1); LYMPH#(MANUAL) 0.94 x10^3/uL (1-3.4); LYMPHS% (MANUAL) 16 % (22-44); MICROCYTOSIS 1+; MONOS#(MANUAL) 0.24 x10^3/uL (0.3-2.7); MONOS% (MANUAL) 4 % (2-9); SEG#(MANUAL) 4.37 x10^3/uL (1.8-6.8); SEGS% (MANUAL) 74 % (42-75)
[2018-04-25 07:53] LABS: <PLATELET ESTIMATE> ADEQUATE; <PLT MORPHOLOGY> NORMAL PLT MORPH; ECHINOCYTES 1+; HYPOCHROMIA 1+; POLYCHROMASIA 1+; SCHISTOCYTES 1+
[2018-04-25 08:01] VITALS: BP 96/58
[2018-04-25] MEDS: SUCRALFATE 1 GM/10 ML UDC PO SCH ×4 (08:41→21:47)
[2018-04-25] MEDS: AMIODARONE 200 MG TABLET PO SCH (08:42)
[2018-04-25] MEDS: FERROUS GLUCONATE 324 MG TABLET PO SCH (08:42)
[2018-04-25] MEDS: POTASSIUM CHLORIDE 20 MEQ TAB.ER.PRT PO SCH ×3 (08:42→21:47)
[2018-04-25] MEDS: CHOLECALCIFEROL 1,000 UNIT TABLET PO SCH (08:42)
[2018-04-25] MEDS: GABAPENTIN 400 MG CAPSULE PO SCH (08:43)
[2018-04-25] MEDS ORDERED: TORSEMIDE 20 MG TABLET PO SCH (09:00)
[2018-04-25 14:50] VITALS: BP 103/70
[2018-04-25 19:48] VITALS: BP 95/58
[2018-04-25] MEDS: SIMVASTATIN 20 MG TABLET PO SCH (21:47)
[2018-04-25 21:50] VITALS: BP 101/62
[2018-04-26] MEDS: DICLOXACILLIN 250 MG CAPSULE PO SCH ×4 (00:15→18:19)
[2018-04-26 02:29] VITALS: BP 103/65
[2018-04-26 05:07] LABS: ANION GAP 5 mmol/L (5-15); CALCIUM 8.9 mg/dL (8.5-10.1); CHLORIDE 110 mmol/L (98-107); CREATININE 2.44 mg/dL (0.7-1.3)
[2018-04-26 06:43] VITALS: BP 102/60
[2018-04-26] MEDS: METOPROLOL SUCCINATE 25 MG TAB.ER.24H PO SCH (06:46)
[2018-04-26] MEDS: PANTOPROZOLE 40MG TABLET PO SCH ×2 (06:46→16:23)
[2018-04-26 07:43] VITALS: BP 102/60
[2018-04-26] MEDS: FERROUS GLUCONATE 324 MG TABLET PO SCH (08:44)
[2018-04-26] MEDS: SUCRALFATE 1 GM/10 ML UDC PO SCH ×4 (08:44→22:36)
[2018-04-26] MEDS ORDERED: GABAPENTIN 300 MG CAPSULE ONE (10:44)
[2018-04-26] MEDS: CHOLECALCIFEROL 1,000 UNIT TABLET PO SCH (10:51)
[2018-04-26] MEDS: POTASSIUM CHLORIDE 20 MEQ TAB.ER.PRT PO SCH (10:51)
[2018-04-26] MEDS: AMIODARONE 200 MG TABLET PO SCH (10:54)
[2018-04-26] MEDS: GABAPENTIN 300 MG CAPSULE PO SCH (10:56)
[2018-04-26] MEDS ORDERED: GABAPENTIN 400 MG CAPSULE PO SCH (11:00)
[2018-04-26 12:30] VITALS: BP 100/64
[2018-04-26] MEDS: TORSEMIDE 20 MG TABLET PO SCH (12:36)
[2018-04-26 12:49] VITALS: BP 99/62
[2018-04-26 19:16] VITALS: BP 99/65
[2018-04-26] MEDS: SIMVASTATIN 20 MG TABLET PO SCH (22:36)
[2018-04-27] MEDS: DICLOXACILLIN 250 MG CAPSULE PO SCH ×3 (00:41→12:05)
[2018-04-27 02:37] VITALS: BP 109/68
[2018-04-27 05:49] LABS: ALBUMIN 2.8 g/dL (3.4-5.0); ANION GAP 5 mmol/L (5-15); CALCIUM 8.8 mg/dL (8.5-10.1); CHLORIDE 110 mmol/L (98-107)
[2018-04-27 05:53] LABS: ALANINE AMINOTRANSFERASE 21 U/L (12-78); ALKALINE PHOSPHATASE 58 U/L (45-117); BILIRUBIN,TOTAL 0.4 mg/dL (0.2-1.0); CREATININE 2.22 mg/dL (0.7-1.3); TOTAL PROTEIN 7.3 g/dL (6.4-8.2)
[2018-04-27] MEDS: PANTOPROZOLE 40MG TABLET PO SCH ×2 (06:39→16:03)
[2018-04-27] MEDS: METOPROLOL SUCCINATE 25 MG TAB.ER.24H PO SCH (06:39)
[2018-04-27] MEDS ORDERED: TORSEMIDE 20 MG TABLET PO SCH (07:30)
[2018-04-27 07:45] VITALS: BP 104/65
[2018-04-27] MEDS: FERROUS GLUCONATE 324 MG TABLET PO SCH (08:01)
[2018-04-27] MEDS: TORSEMIDE 20 MG TABLET PO SCH (08:02)
[2018-04-27] MEDS: SUCRALFATE 1 GM/10 ML UDC PO SCH ×3 (08:02→16:03)
[2018-04-27] MEDS: AMIODARONE 200 MG TABLET PO SCH (12:04)
[2018-04-27] MEDS: POTASSIUM CHLORIDE 20 MEQ TAB.ER.PRT PO SCH (12:05)
[2018-04-27] MEDS: CHOLECALCIFEROL 1,000 UNIT TABLET PO SCH (12:05)
[2018-04-27] MEDS: GABAPENTIN 300 MG CAPSULE PO SCH (12:05)
[2018-04-27 13:49] VITALS: BP 100/65
[2018-04-27] MEDS ORDERED: CHOL10003 PO (15:02)
[2018-04-27] MEDS ORDERED: SUCR1ORA5 PO (15:02)
[2018-04-27] MEDS ORDERED: GABA300C10 PO (15:02)
[2018-04-27] MEDS ORDERED: PANT40TA5 PO ×2 (15:02)
[2018-04-27] MEDS ORDERED: OMEP-110 PO (15:16)
== END 2018-04-27 17:58 | disposition home health service (06) | DRG 682 ==
LOC: ED 06:40 → EDIP 06:54 → 5SO 12:18
PROVIDERS: ADMIT Hospitalist; ATTEND Hospitalist
PROC: 30233N1 Transfusion of Nonautologous Red Blood Cells into Peripheral Vein, Percutaneous Approach (ICD-10-PCS; principal; 2018-04-18)
DX: N17.9 Acute kidney failure, unspecified (principal); I50.33 Acute on chronic diastolic (congestive) heart failure; I13.0 Hypertensive heart and chronic kidney disease with heart failure and stage 1 through stage 4 chronic kidney disease, or unspecified chronic kidney disease; E46 Unspecified protein-calorie malnutrition; D68.69 Other thrombophilia; E87.0 Hyperosmolality and hypernatremia; I31.3 Pericardial effusion (noninflammatory); N39.0 Urinary tract infection, site not specified; D50.9 Iron deficiency anemia, unspecified; D63.8 Anemia in other chronic diseases classified elsewhere; E66.9 Obesity, unspecified; E78.5 Hyperlipidemia, unspecified; E87.6 Hypokalemia; G47.33 Obstructive sleep apnea (adult) (pediatric); I34.0 Nonrheumatic mitral (valve) insufficiency; I48.0 Paroxysmal atrial fibrillation; J44.9 Chronic obstructive pulmonary disease, unspecified; K44.9 Diaphragmatic hernia without obstruction or gangrene; K57.30 Diverticulosis of large intestine without perforation or abscess without bleeding; N18.4 Chronic kidney disease, stage 4 (severe); Z79.01 Long term (current) use of anticoagulants; Z86.19 Personal history of other infectious and parasitic diseases; Z87.891 Personal history of nicotine dependence; Z90.79 Acquired absence of other genital organ(s); Z95.0 Presence of cardiac pacemaker; Z99.81 Dependence on supplemental oxygen; Z79.899 Other long term (current) drug therapy
CPT/HCPCS: 36415; 36430; 71045; 71250; 80053; 80061; 80069; 80202; 81001; 82272; 82306; 82728; 83540; 83550; 83605; 83735; 83880; 83970; 84100; 84145; 84443; 84466; 85025; 85610; 86850; 86900; 86923; 87040; 87077; 87086; 87186; 87400; 93005; 93306; 94640; 96361; 96374; 96375; G0378; J1940; J3370; J7620; J7626; C9113; J7030; J7050; P9016

== ENCOUNTER 2018-04-30 13:05 | Outpatient (CLI) | payer MEDICARE ==
[~2018-04-30 13:05] MED LIST changes: +CHOL10003 PO; +GABA300C10 PO; +PANT40TA5 PO; +SUCR1ORA5 PO
== END 2018-04-30 23:59 | disposition home or self-care (01) ==
LOC: CFH 13:05
PROVIDERS: ATTEND Internal Medicine Cardiovascular Disease
DX: Z02.9 Encounter for administrative examinations, unspecified (principal)
CPT/HCPCS: 36415; 80048

== ENCOUNTER → 2018-05-07 | Outpatient (CLI) | payer MEDICARE ==
[2018-05-07 14:15] LABS: % IRON SATURATION 57 % (20-55); ALANINE AMINOTRANSFERASE 31 U/L (12-78); ALBUMIN 3.3 g/dL (3.4-5.0); ANION GAP 4 mmol/L (5-15); CALCIUM 9.3 mg/dL (8.5-10.1); CHLORIDE 112 mmol/L (98-107); CREATININE 1.92 mg/dL (0.7-1.3); IRON LEVEL 203 mcg/dL (65-175); TOTAL IRON BINDING CAPACITY 358 mcg/dL (250-450)
[2018-05-07 14:17] LABS: ALKALINE PHOSPHATASE 58 U/L (45-117); BILIRUBIN,TOTAL 0.3 mg/dL (0.2-1.0); TOTAL PROTEIN 7.5 g/dL (6.4-8.2)
[2018-05-07 14:34] LABS: CULTURE INDICATED? YES; MICROSCOPIC INDICATED
[2018-05-07 14:49] LABS: MD YES; MEAN CORPUSCULAR HEMOGLOBIN 24.6 pg (27.5-34.5); MEAN CORPUSCULAR VOLUME 79.3 fL (81-97); MEAN PLATELET VOLUME 9.2 fL (7.4-10.4); PLATELET COUNT 291 x10^3/uL (130-400); RED BLOOD COUNT 4.09 x10^6/uL (4.38-5.82); RED CELL DISTRIBUTION WIDTH 16.5 % (9.4-14.8)
[2018-05-07 14:59] LABS: BASOS#(MANUAL) 0.13 x10^3/uL (0-0.1); BASOS% (MANUAL) 3 % (0-1); EOS#(MANUAL) 0.04 x10^3/uL (0.0-0.4); EOS% (MANUAL) 1 % (1-7); LYMPH#(MANUAL) 0.92 x10^3/uL (1-3.4); LYMPHS% (MANUAL) 21 % (22-44); MONOS#(MANUAL) 0.88 x10^3/uL (0.3-2.7); MONOS% (MANUAL) 20 % (2-9); SEG#(MANUAL) 2.42 x10^3/uL (1.8-6.8); SEGS% (MANUAL) 55 % (42-75)
[2018-05-07 15:00] LABS: ANISOCYTOSIS 1+; HYPOCHROMIA 1+; MICROCYTOSIS 1+; POLYCHROMASIA 1+
[2018-05-07 15:01] LABS: OVALOCYTES 1+
[2018-05-07 15:02] LABS: <PLATELET ESTIMATE> ADEQUATE; <PLT MORPHOLOGY> NORMAL PLT MORPH; SCHISTOCYTES 1+
== END | disposition home or self-care (01) ==
LOC: LAB 13:41
PROVIDERS: ATTEND Internal Medicine Nephrology
DX: D64.9 Anemia, unspecified (principal); N17.9 Acute kidney failure, unspecified; N18.9 Chronic kidney disease, unspecified; I50.9 Heart failure, unspecified; Z79.899 Other long term (current) drug therapy
CPT/HCPCS: 36415; 80053; 81001; 82728; 83540; 83550; 85025; 87086

== ENCOUNTER 2018-08-20 13:16 | Outpatient (CLI) | payer MEDICARE | END 2018-08-20 23:59 | disposition home or self-care (01) | LOC: CVU 13:16 | PROVIDERS: ATTEND Internal Medicine Cardiovascular Disease | DX: I08.3 Combined rheumatic disorders of mitral, aortic and tricuspid valves (principal); I48.91 Unspecified atrial fibrillation; J44.9 Chronic obstructive pulmonary disease, unspecified; I50.9 Heart failure, unspecified | CPT/HCPCS: 0399T; 93306 ==

== ENCOUNTER 2018-09-16 10:52 | Outpatient (CLI) | payer MEDICARE ==
[2018-09-16 13:02] LABS: BASOPHILS # (AUTO) 0.03 x10^3/uL (0-0.1); BASOPHILS % (AUTO) 1 % (0-1); EOSINOPHILS # (AUTO) 0.18 x10^3/uL (0-0.4); EOSINOPHILS % (AUTO) 3 % (1-7); LYMPHOCYTES # (AUTO) 0.87 x10^3/uL (1-3.4); LYMPHOCYTES % (AUTO) 16 % (22-44); MD NO; MEAN CORPUSCULAR HEMOGLOBIN 29.9 pg (27.5-34.5); MEAN CORPUSCULAR HGB CONC 32.5 g/dL (33.2-36.2); MEAN PLATELET VOLUME 9.5 fL (7.4-10.4); MONOCYTES # (AUTO) 0.73 x10^3/uL (0.2-0.8); MONOCYTES % (AUTO) 13 % (2-9); NEUTROPHILS # (AUTO) 3.64 x10^3/uL (1.8-6.8); NEUTROPHILS % (AUTO) 67 % (42-75); PLATELET COUNT 187 x10^3/uL (130-400); RED BLOOD COUNT 4.85 x10^6/uL (4.38-5.82); RED CELL DISTRIBUTION WIDTH 17.8 % (9.4-14.8)
[2018-09-16 13:03] LABS: MICROSCOPIC AUTO
[2018-09-16 13:19] LABS: CHLORIDE 111 mmol/L (98-107)
[2018-09-16 13:42] LABS: % IRON SATURATION 41 % (20-55); ALANINE AMINOTRANSFERASE 20 U/L (12-78); ALBUMIN 3.3 g/dL (3.4-5.0); ALKALINE PHOSPHATASE 58 U/L (45-117); ANION GAP 6 mmol/L (5-15); BILIRUBIN,TOTAL 0.7 mg/dL (0.2-1.0); CALCIUM 8.8 mg/dL (8.5-10.1); CREATININE 1.75 mg/dL (0.7-1.3); IRON LEVEL 111 mcg/dL (65-175); TOTAL IRON BINDING CAPACITY 268 mcg/dL (250-450); TOTAL PROTEIN 7.2 g/dL (6.4-8.2)
[2018-11-11] MEDS ORDERED: CHOL100012 PO (15:25)
[2018-11-11] MEDS ORDERED: FERR324T5 PO (15:25)
[2018-11-11] MEDS ORDERED: GABA600T7 PO (15:25)
[2018-11-11] MEDS ORDERED: METO25TA91 PO (15:25)
[2018-11-11] MEDS ORDERED: POTA20TA6 PO (15:25)
[2018-11-11] MEDS ORDERED: TORS20TA2 PO (15:25)
[2018-11-11] MEDS ORDERED: OMEP20TA62 PO (15:26)
== END 2018-09-16 23:59 | disposition home or self-care (01) ==
LOC: CFH 10:52
PROVIDERS: ATTEND Physician Assistant
DX: E55.9 Vitamin D deficiency, unspecified (principal); D63.1 Anemia in chronic kidney disease; N18.3 Chronic kidney disease, stage 3 (moderate); R97.20 Elevated prostate specific antigen [PSA]
CPT/HCPCS: 36415; 80053; 81001; 82306; 82570; 82728; 83540; 83550; 84153; 84156; 85025

== ENCOUNTER → 2019-08-04 | Outpatient (CLI) | payer MEDICARE ==
[~2019-08-04] MED LIST changes: +CHOL100012 PO; +FERR324T5 PO; +OMEP20TA62 PO; +SIMV20TA19 PO; -SIMV20TA3 PO; +TORS20TA2 PO
[2019-08-04 12:59] LABS: BASOPHILS # (AUTO) 0.03 x10^3/uL (0-0.1); BASOPHILS % (AUTO) 1 % (0-1); EOSINOPHILS # (AUTO) 0.12 x10^3/uL (0-0.4); EOSINOPHILS % (AUTO) 2 % (1-7); LYMPHOCYTES # (AUTO) 0.63 x10^3/uL (1-3.4); LYMPHOCYTES % (AUTO) 12 % (22-44); MD NO; MEAN CORPUSCULAR HEMOGLOBIN 30.2 pg (27.5-34.5); MEAN CORPUSCULAR HGB CONC 32.1 g/dL (33.2-36.2); MEAN CORPUSCULAR VOLUME 94.2 fL (81-97); MEAN PLATELET VOLUME 8.5 fL (7.4-10.4); MONOCYTES # (AUTO) 0.72 x10^3/uL (0.2-0.8); MONOCYTES % (AUTO) 14 % (2-9); NEUTROPHILS # (AUTO) 3.67 x10^3/uL (1.8-6.8); NEUTROPHILS % (AUTO) 71 % (42-75); PLATELET COUNT 206 x10^3/uL (130-400); RED BLOOD COUNT 4.06 x10^6/uL (4.38-5.82); RED CELL DISTRIBUTION WIDTH 14.3 % (9.4-14.8)
[2019-08-04 13:02] LABS: CHLORIDE 107 mmol/L (98-107)
[2019-08-04 13:04] LABS: MICROSCOPIC INDICATED
[2019-08-04 13:12] LABS: ALANINE AMINOTRANSFERASE 17 U/L (12-78); ALBUMIN 3.1 g/dL (3.4-5.0); ALKALINE PHOSPHATASE 63 U/L (45-117); ANION GAP 4 mmol/L (5-15); BILIRUBIN,TOTAL 0.7 mg/dL (0.2-1.0); CALCIUM 9.2 mg/dL (8.5-10.1); CREATININE 1.93 mg/dL (0.7-1.3); TOTAL PROTEIN 7.6 g/dL (6.4-8.2)
== END | disposition home or self-care (01) ==
LOC: CFH 10:55
PROVIDERS: ATTEND Internal Medicine Cardiovascular Disease
DX: I35.8 Other nonrheumatic aortic valve disorders (principal); I12.9 Hypertensive chronic kidney disease with stage 1 through stage 4 chronic kidney disease, or unspecified chronic kidney disease; N18.3 Chronic kidney disease, stage 3 (moderate); R80.9 Proteinuria, unspecified; R60.9 Edema, unspecified; D63.1 Anemia in chronic kidney disease; I48.91 Unspecified atrial fibrillation; E55.9 Vitamin D deficiency, unspecified
CPT/HCPCS: 36415; 80053; 81001; 82306; 82570; 84156; 85025; 93306

== ENCOUNTER → 2019-09-29 | Outpatient (CLI) | payer MEDICARE ==
[~2019-09-29] MED LIST changes: +ASPI81TA45 PO; +ATOR40TA78 PO; +COLC0.6C3 PO
== END | disposition home or self-care (01) ==
LOC: CVU 15:34
PROVIDERS: ATTEND Internal Medicine Cardiovascular Disease
DX: I08.3 Combined rheumatic disorders of mitral, aortic and tricuspid valves (principal); I31.3 Pericardial effusion (noninflammatory)
CPT/HCPCS: 93306

== ENCOUNTER → 2019-10-14 | Outpatient (CLI) | payer MEDICARE ==
[2019-10-14 12:31] LABS: BASOPHILS # (AUTO) 0.04 x10^3/uL (0-0.1); BASOPHILS % (AUTO) 1 % (0-1); EOSINOPHILS # (AUTO) 0.18 x10^3/uL (0-0.4); EOSINOPHILS % (AUTO) 3 % (1-7); LYMPHOCYTES # (AUTO) 0.82 x10^3/uL (1-3.4); LYMPHOCYTES % (AUTO) 15 % (22-44); MD NO; MEAN CORPUSCULAR HEMOGLOBIN 28.7 pg (27.5-34.5); MEAN CORPUSCULAR HGB CONC 32.7 g/dL (33.2-36.2); MEAN CORPUSCULAR VOLUME 87.8 fL (81-97); MEAN PLATELET VOLUME 9.1 fL (7.4-10.4); MONOCYTES # (AUTO) 0.86 x10^3/uL (0.2-0.8); MONOCYTES % (AUTO) 16 % (2-9); NEUTROPHILS # (AUTO) 3.54 x10^3/uL (1.8-6.8); NEUTROPHILS % (AUTO) 65 % (42-75); PLATELET COUNT 208 x10^3/uL (130-400); RED BLOOD COUNT 4.51 x10^6/uL (4.38-5.82); RED CELL DISTRIBUTION WIDTH 16.1 % (9.4-14.8)
[2019-10-14 12:46] LABS: ALANINE AMINOTRANSFERASE 20 U/L (12-78); ALBUMIN 3.1 g/dL (3.4-5.0); ANION GAP 5 mmol/L (5-15); CALCIUM 9.2 mg/dL (8.5-10.1); CHLORIDE 108 mmol/L (98-107)
[2019-10-14 12:56] LABS: ALKALINE PHOSPHATASE 57 U/L (45-117); BILIRUBIN,TOTAL 0.7 mg/dL (0.2-1.0); CHOL/HDL RATIO 2.4; CHOLESTEROL, TOTAL 104 mg/dL (140-239); CREATININE 2.16 mg/dL (0.7-1.3); HDL CHOL % 42 % (26-37); HDL CHOLESTEROL (DIRECT) 44 mg/dL (40-60); LDL CHOLESTEROL,CALCULATED 48 mg/dL (54-169); LDL/HDL RATIO 1.1 (0.5-3.0); TOTAL PROTEIN 7.6 g/dL (6.4-8.2); TRIGLYCERIDES 60 mg/dL (50-200); VLDL CHOLESTEROL 12 mg/dL (0-25)
== END | disposition home or self-care (01) ==
LOC: CFH 11:24
PROVIDERS: ATTEND Internal Medicine Nephrology
DX: I12.9 Hypertensive chronic kidney disease with stage 1 through stage 4 chronic kidney disease, or unspecified chronic kidney disease (principal); N18.3 Chronic kidney disease, stage 3 (moderate); R80.9 Proteinuria, unspecified; R60.9 Edema, unspecified; D63.1 Anemia in chronic kidney disease; E55.9 Vitamin D deficiency, unspecified; I48.91 Unspecified atrial fibrillation; I48.0 Paroxysmal atrial fibrillation; E78.5 Hyperlipidemia, unspecified
CPT/HCPCS: 36415; 80053; 80061; 82306; 84100; 84443; 85025

== ENCOUNTER → 2019-10-19 | Outpatient (CLI) | payer MEDICARE ==
[~2019-10-19] MED LIST changes: +ASCO100018 PO; -ASCO10004 PO; -PANT40TA5 PO; +PANT40TA6 PO
[2019-10-19 12:48] LABS: CREATININE,URINE RANDOM 89.4 mg/dL
== END | disposition home or self-care (01) ==
LOC: CFH 10:08
PROVIDERS: ATTEND Internal Medicine Nephrology
DX: I12.9 Hypertensive chronic kidney disease with stage 1 through stage 4 chronic kidney disease, or unspecified chronic kidney disease (principal); N18.3 Chronic kidney disease, stage 3 (moderate); R80.9 Proteinuria, unspecified; R60.9 Edema, unspecified; D63.1 Anemia in chronic kidney disease; E55.9 Vitamin D deficiency, unspecified; I48.91 Unspecified atrial fibrillation
CPT/HCPCS: 82570; 84156

== ENCOUNTER → 2019-11-25 | Outpatient (CLI) | payer MEDICARE | END | disposition home or self-care (01) | LOC: RAD 15:25 | PROVIDERS: ATTEND Internal Medicine Cardiovascular Disease | DX: J44.9 Chronic obstructive pulmonary disease, unspecified (principal); G47.30 Sleep apnea, unspecified; I11.0 Hypertensive heart disease with heart failure; I50.30 Unspecified diastolic (congestive) heart failure; I48.20 Chronic atrial fibrillation, unspecified; I45.19 Other right bundle-branch block; I34.0 Nonrheumatic mitral (valve) insufficiency; I31.3 Pericardial effusion (noninflammatory); N28.9 Disorder of kidney and ureter, unspecified; R60.9 Edema, unspecified; R63.5 Abnormal weight gain; Z95.0 Presence of cardiac pacemaker | CPT/HCPCS: 71046 ==

== ENCOUNTER 2019-12-21 15:25 | Outpatient (CLI) | payer MEDICARE | END 2019-12-21 23:59 | disposition home or self-care (01) | LOC: CVU 15:25 | PROVIDERS: ATTEND Nurse Practitioner Family | DX: Z02.9 Encounter for administrative examinations, unspecified (principal) ==

== ENCOUNTER 2019-12-21 15:52 | Inpatient (IN) | payer MEDICARE ==
[~2019-12-21] VITALS: Ht 182.9 cm; Wt 120.6 kg
[2019-12-21] MEDS ORDERED: SODIUM CHLORIDE 0.9% 1,000ML IVBOLUS ONE ×2 (16:30→18:30)
[2019-12-21] MEDS ORDERED: SODIUM CHLORIDE FLUSH 10ML SYR IVF ONE (16:30)
--- NOTE | 2019-12-21 17:29 | NUR ---
PT C/O OF LOWER LEFT ABD PAIN THAT STARTED YESTERDAY. PT DENIES N/V AND DIARRHEA. PT DENIES CHETS PAIN OR SOB. PT'S SPOUSE STATES HE HASN'T HAD A BM IN 2 DAYS, WHICH IS ABNORMAL FOR HIM. PT HAS A HX OF DIVERTICULITIS.
[2019-12-21 17:42] LABS: BASOPHILS % (AUTO) 1 % (0-1); EOSINOPHILS % (AUTO) 0 % (1-7); LYMPHOCYTES % (AUTO) 5 % (22-44); MEAN CORPUSCULAR HEMOGLOBIN 28.7 pg (27.5-34.5); MEAN PLATELET VOLUME 8.7 fL (7.4-10.4); MONOCYTES % (AUTO) 16 % (2-9); NEUTROPHILS % (AUTO) 78 % (42-75); PLATELET COUNT 211 x10^3/uL (130-400); RED CELL DISTRIBUTION WIDTH 16.5 % (9.4-14.8)
[2019-12-21 17:47] LABS: MD NO
--- NOTE | 2019-12-21 17:50 | NUR ---
DR SUAZO BEDSIDE
[2019-12-21 17:56] LABS: ALANINE AMINOTRANSFERASE 53 U/L (12-78); ALBUMIN 3.1 g/dL (3.4-5.0); ANION GAP 2 mmol/L (5-15); CALCIUM 9.2 mg/dL (8.5-10.1); CHLORIDE 109 mmol/L (98-107); CREATININE 3.35 mg/dL (0.7-1.3)
[2019-12-21 18:09] LABS: ALKALINE PHOSPHATASE 77 U/L (45-117); BILIRUBIN,TOTAL 0.9 mg/dL (0.2-1.0); TOTAL PROTEIN 7.9 g/dL (6.4-8.2)
--- NOTE | 2019-12-21 18:26 | NUR ---
PT OFF THE FLOOR TO CT
--- NOTE | 2019-12-21 18:42 | NUR ---
PT BACK IN ROOM
[2019-12-21 18:46] LABS: TROPONIN I 0.047 ng/mL (0.000-0.045)
--- NOTE | 2019-12-21 18:52 | NUR ---
REPORT GIVEN TO SARAVANAN MCKINNON
--- NOTE | 2019-12-21 19:06 | NUR ---
Report received from SARAVANAN Loera. This RN to assume care.
[2019-12-21 19:42] LABS: MICROSCOPIC AUTO
[2019-12-21] MEDS ORDERED: CEFTRIAXONE PMX 1GM/50ML 50 ML IV ONE (20:30)
[2019-12-21] MEDS ORDERED: ASPIRIN 81 MG TABLET CHEW PO ONE (20:30)
[2019-12-21] MEDS ORDERED: CEFTRIAXONE PMX 1GM/50ML 50 ML ONE (20:59)
[2019-12-21] MEDS ORDERED: ALBUTEROL HFA 90 MCG/SPRAY INH SCH (21:00)
[2019-12-21] MEDS ORDERED: ASPIRIN 81 MG TABLET CHEW ONE (21:00)
[2019-12-21] MEDS ORDERED: SODIUM CHLORIDE 0.9% 1,000 ML IV SCH (21:00)
[2019-12-21] MEDS ORDERED: GABAPENTIN 300 MG CAPSULE PO PRN (21:00)
[2019-12-21] MEDS ORDERED: DOCUSATE 100 MG CAPSULE PO PRN (21:00)
[2019-12-21] MEDS ORDERED: POLYETHYLENE GLYCOL 17 GM PACKET PO PRN (21:00)
--- NOTE | 2019-12-21 21:00 | NUR ---
Second fluid bolus initiated. Meds admin per apr. Communicated to patient's partner that no visitors allowed tonight but normal visiting hours tomorrow are from [phone].
--- NOTE | 2019-12-21 21:51 | NUR ---
Report given to SARAVANAN Forde. Patient to be transferred to room 402-1.
[2019-12-21 22:29] VITALS: BP 128/76
[2019-12-21] MEDS: ATORVASTATIN 40 MG TABLET PO SCH (22:30)
[2019-12-21] MEDS: HEPARIN 5,000 UNITS/ML, 1ML SQ SCH (22:30)
[2019-12-22 00:55] VITALS: BP 138/78
[2019-12-22 01:09] LABS: TROPONIN I 0.048 ng/mL (0.000-0.045)
[2019-12-22 04:25] LABS: BASOPHILS % (AUTO) 1 % (0-1); EOSINOPHILS % (AUTO) 0 % (1-7); LYMPHOCYTES % (AUTO) 5 % (22-44); MEAN CORPUSCULAR HEMOGLOBIN 28.9 pg (27.5-34.5); MEAN CORPUSCULAR HGB CONC 32.1 g/dL (33.2-36.2); MEAN PLATELET VOLUME 9.1 fL (7.4-10.4); MONOCYTES % (AUTO) 13 % (2-9); NEUTROPHILS % (AUTO) 81 % (42-75); PLATELET COUNT 188 x10^3/uL (130-400); RED BLOOD COUNT 4.54 x10^6/uL (4.38-5.82); RED CELL DISTRIBUTION WIDTH 16.5 % (9.4-14.8)
[2019-12-22 04:34] LABS: MD NO
[2019-12-22 04:37] LABS: CHLORIDE 112 mmol/L (98-107)
[2019-12-22 04:48] LABS: ANION GAP 6 mmol/L (5-15); CALCIUM 9.1 mg/dL (8.5-10.1); CREATININE 2.97 mg/dL (0.7-1.3); TROPONIN I 0.063 ng/mL (0.000-0.045)
[2019-12-22] MEDS: ASPIRIN 81 MG TABLET EC PO SCH (06:05)
[2019-12-22] MEDS: HEPARIN 5,000 UNITS/ML, 1ML SQ SCH ×3 (06:05→22:29)
[2019-12-22] MEDS: FLUTICASONE/VILANTEROL 100-25MCG/INH INH SCH (07:21)
[2019-12-22] MEDS: TIOTROPIUM BROMIDE 18 MCG/INH INH SCH (07:21)
[2019-12-22 07:59] VITALS: BP 128/79
[2019-12-22] MEDS ORDERED: POLYETHYLENE GLYCOL 17 GM PACKET NG PRN (09:00)
[2019-12-22] MEDS ORDERED: TORSEMIDE 20 MG TABLET PO SCH (09:00)
[2019-12-22] MEDS ORDERED: BISACODYL 10 MG SUPP PR PRN (09:00)
[2019-12-22] MEDS ORDERED: POTASSIUM CHLORIDE 20 MEQ TAB.ER.PRT PO SCH (09:00)
[2019-12-22] MEDS: CHOLECALCIFEROL 1,000 UNIT TABLET PO SCH (09:19)
[2019-12-22] MEDS: AMIODARONE 200 MG TABLET PO SCH (09:19)
[2019-12-22] MEDS: OMEPRAZOLE 20 MG CAPSULE.DR PO SCH (09:20)
[2019-12-22] MEDS: METOPROLOL SUCCINATE 25 MG TAB.ER.24H PO SCH (09:20)
[2019-12-22] MEDS: ASCORBIC ACID 500 MG TABLET PO SCH (09:20)
[2019-12-22] MEDS: FERROUS SULFATE 325 MG TABLET PO SCH (09:20)
[2019-12-22] MEDS ORDERED: SENNA/DOCUSATE TABLET ONE ×2 (09:28→09:31)
[2019-12-22] MEDS: SENNA/DOCUSATE TABLET PO SCH (09:32)
[2019-12-22 12:07] VITALS: BP 115/69
[2019-12-22 18:54] VITALS: BP 100/64
[2019-12-22] MEDS: ATORVASTATIN 40 MG TABLET PO SCH (20:26)
[2019-12-22] MEDS: CEFTRIAXONE PMX 1GM/50ML 50 ML IV SCH (20:26)
[2019-12-23 00:48] VITALS: BP 148/85
[2019-12-23 03:15] VITALS: BP 141/80
[2019-12-23] MEDS: ACETAMINOPHEN 325 MG TABLET PO PRN ×2 (03:33→23:26)
[2019-12-23] MEDS: ASPIRIN 81 MG TABLET EC PO SCH (06:11)
[2019-12-23] MEDS: HEPARIN 5,000 UNITS/ML, 1ML SQ SCH ×3 (06:12→22:05)
[2019-12-23] MEDS: SUMATRIPTAN 50 MG TABLET PO PRN (06:12)
[2019-12-23 06:32] VITALS: BP 121/71
[2019-12-23 07:50] LABS: BASOPHILS % (AUTO) 0 % (0-1); EOSINOPHILS % (AUTO) 0 % (1-7); LYMPHOCYTES % (AUTO) 2 % (22-44); MEAN CORPUSCULAR HEMOGLOBIN 28.9 pg (27.5-34.5); MEAN CORPUSCULAR HGB CONC 32.1 g/dL (33.2-36.2); MEAN PLATELET VOLUME 8.9 fL (7.4-10.4); MONOCYTES % (AUTO) 7 % (2-9); NEUTROPHILS % (AUTO) 90 % (42-75); PLATELET COUNT 181 x10^3/uL (130-400); RED BLOOD COUNT 4.04 x10^6/uL (4.38-5.82); RED CELL DISTRIBUTION WIDTH 16.7 % (9.4-14.8)
[2019-12-23 08:00] LABS: ALANINE AMINOTRANSFERASE 38 U/L (12-78); ALBUMIN 2.6 g/dL (3.4-5.0); ANION GAP 9 mmol/L (5-15); CALCIUM 8.8 mg/dL (8.5-10.1); CHLORIDE 116 mmol/L (98-107); CREATININE 3.13 mg/dL (0.7-1.3)
[2019-12-23 08:03] LABS: ALKALINE PHOSPHATASE 71 U/L (45-117); BILIRUBIN,TOTAL 0.8 mg/dL (0.2-1.0); TOTAL PROTEIN 7.1 g/dL (6.4-8.2)
[2019-12-23] MEDS: FLUTICASONE/VILANTEROL 100-25MCG/INH INH SCH (08:10)
[2019-12-23] MEDS: TIOTROPIUM BROMIDE 18 MCG/INH INH SCH (08:10)
[2019-12-23 08:41] LABS: MD SCAN
[2019-12-23] MEDS: ASCORBIC ACID 500 MG TABLET PO SCH (10:19)
[2019-12-23] MEDS: FERROUS SULFATE 325 MG TABLET PO SCH (10:19)
[2019-12-23] MEDS: SENNA/DOCUSATE TABLET PO SCH (10:19)
[2019-12-23] MEDS: OMEPRAZOLE 20 MG CAPSULE.DR PO SCH (10:19)
[2019-12-23] MEDS: METOPROLOL SUCCINATE 25 MG TAB.ER.24H PO SCH (10:19)
[2019-12-23] MEDS: AMIODARONE 200 MG TABLET PO SCH (10:20)
[2019-12-23] MEDS: CHOLECALCIFEROL 1,000 UNIT TABLET PO SCH (10:20)
[2019-12-23] MEDS ORDERED: SODIUM CHLORIDE 0.9% 1,000 ML IV SCH (10:30)
[2019-12-23 13:25] VITALS: BP 106/72
[2019-12-23 18:40] VITALS: BP 106/65
[2019-12-23] MEDS: CEFTRIAXONE PMX 1GM/50ML 50 ML IV SCH (20:00)
[2019-12-23] MEDS: ATORVASTATIN 40 MG TABLET PO SCH (22:05)
[2019-12-24 00:28] VITALS: BP 131/78
[2019-12-24] MEDS: SUMATRIPTAN 50 MG TABLET PO PRN (00:35)
[2019-12-24 05:05] LABS: BASOPHILS % (AUTO) 0 % (0-1); EOSINOPHILS % (AUTO) 1 % (1-7); LYMPHOCYTES % (AUTO) 5 % (22-44); MEAN CORPUSCULAR HEMOGLOBIN 28.8 pg (27.5-34.5); MEAN CORPUSCULAR HGB CONC 32.1 g/dL (33.2-36.2); MEAN PLATELET VOLUME 9.1 fL (7.4-10.4); MONOCYTES % (AUTO) 9 % (2-9); NEUTROPHILS % (AUTO) 85 % (42-75); PLATELET COUNT 185 x10^3/uL (130-400); RED BLOOD COUNT 3.97 x10^6/uL (4.38-5.82); RED CELL DISTRIBUTION WIDTH 16.3 % (9.4-14.8)
[2019-12-24 05:07] LABS: MD NO
[2019-12-24 05:18] LABS: ANION GAP 6 mmol/L (5-15); CALCIUM 8.9 mg/dL (8.5-10.1); CHLORIDE 117 mmol/L (98-107)
[2019-12-24 05:24] LABS: CREATININE 2.77 mg/dL (0.7-1.3)
[2019-12-24] MEDS: HEPARIN 5,000 UNITS/ML, 1ML SQ SCH ×3 (05:27→20:32)
[2019-12-24] MEDS: ASPIRIN 81 MG TABLET EC PO SCH (05:27)
[2019-12-24 07:34] VITALS: BP 134/78
[2019-12-24] MEDS: ASCORBIC ACID 500 MG TABLET PO SCH (08:07)
[2019-12-24] MEDS: METOPROLOL SUCCINATE 25 MG TAB.ER.24H PO SCH (08:07)
[2019-12-24] MEDS: ASA/APAP/ CAFFEINE TABLET PO PRN (08:07)
[2019-12-24] MEDS: FERROUS SULFATE 325 MG TABLET PO SCH (08:07)
[2019-12-24] MEDS: AMIODARONE 200 MG TABLET PO SCH (08:07)
[2019-12-24] MEDS: OMEPRAZOLE 20 MG CAPSULE.DR PO SCH (08:08)
[2019-12-24] MEDS: CHOLECALCIFEROL 1,000 UNIT TABLET PO SCH (08:08)
[2019-12-24] MEDS: SENNA/DOCUSATE TABLET PO SCH (08:08)
[2019-12-24] MEDS: MORPHINE SULFATE 4 MG/ML, 1ML IVPush PRN (08:56)
[2019-12-24] MEDS: GABAPENTIN 300 MG CAPSULE PO SCH ×4 (08:56→20:31)
[2019-12-24] MEDS: FLUTICASONE/VILANTEROL 100-25MCG/INH INH SCH (10:15)
[2019-12-24] MEDS: TIOTROPIUM BROMIDE 18 MCG/INH INH SCH (10:15)
[2019-12-24 12:08] VITALS: BP 103/64
[2019-12-24] MEDS: ATORVASTATIN 40 MG TABLET PO SCH (20:29)
[2019-12-24] MEDS: CEFTRIAXONE PMX 1GM/50ML 50 ML IV SCH (20:42)
[2019-12-24 21:03] VITALS: BP 126/81
[2019-12-25 01:15] VITALS: BP 128/84
[2019-12-25] MEDS: MORPHINE SULFATE 4 MG/ML, 1ML IVPush PRN (03:46)
[2019-12-25] MEDS: ASPIRIN 81 MG TABLET EC PO SCH (05:43)
[2019-12-25] MEDS: SUMATRIPTAN 50 MG TABLET PO PRN (05:43)
[2019-12-25] MEDS: HEPARIN 5,000 UNITS/ML, 1ML SQ SCH ×3 (05:44→21:12)
[2019-12-25 06:22] LABS: BASOPHILS % (AUTO) 1 % (0-1); EOSINOPHILS % (AUTO) 3 % (1-7); LYMPHOCYTES % (AUTO) 7 % (22-44); MEAN CORPUSCULAR HEMOGLOBIN 29.3 pg (27.5-34.5); MEAN CORPUSCULAR HGB CONC 32.6 g/dL (33.2-36.2); MEAN PLATELET VOLUME 9.3 fL (7.4-10.4); MONOCYTES % (AUTO) 16 % (2-9); NEUTROPHILS % (AUTO) 74 % (42-75); PLATELET COUNT 195 x10^3/uL (130-400); RED BLOOD COUNT 3.96 x10^6/uL (4.38-5.82); RED CELL DISTRIBUTION WIDTH 16.5 % (9.4-14.8)
[2019-12-25 06:30] LABS: CHLORIDE 119 mmol/L (98-107)
[2019-12-25 06:35] LABS: ANION GAP 7 mmol/L (5-15); CALCIUM 9.5 mg/dL (8.5-10.1)
[2019-12-25 06:36] LABS: MD NO
[2019-12-25 07:15] VITALS: BP 129/85
[2019-12-25] MEDS: CHOLECALCIFEROL 1,000 UNIT TABLET PO SCH (09:43)
[2019-12-25] MEDS: SENNA/DOCUSATE TABLET PO SCH (09:43)
[2019-12-25] MEDS: FERROUS SULFATE 325 MG TABLET PO SCH (09:43)
[2019-12-25] MEDS: ASCORBIC ACID 500 MG TABLET PO SCH (09:44)
[2019-12-25] MEDS: AMIODARONE 200 MG TABLET PO SCH (09:44)
[2019-12-25] MEDS: OMEPRAZOLE 20 MG CAPSULE.DR PO SCH (09:44)
[2019-12-25] MEDS: GABAPENTIN 300 MG CAPSULE PO SCH ×3 (09:44→21:12)
[2019-12-25] MEDS: METOPROLOL SUCCINATE 25 MG TAB.ER.24H PO SCH (09:45)
[2019-12-25 13:38] VITALS: BP 120/72
[2019-12-25] MEDS: FLUTICASONE/VILANTEROL 100-25MCG/INH INH SCH (14:24)
[2019-12-25] MEDS: TIOTROPIUM BROMIDE 18 MCG/INH INH SCH (14:25)
[2019-12-25 19:10] VITALS: BP 111/67
[2019-12-25] MEDS: CEFTRIAXONE PMX 1GM/50ML 50 ML IV SCH (21:11)
[2019-12-25] MEDS: ATORVASTATIN 40 MG TABLET PO SCH (21:11)
[2019-12-26] MEDS: ALBUTEROL HFA 90 MCG/SPRAY INH PRN ×2 (00:18→09:41)
[2019-12-26 00:55] VITALS: BP 119/72
[2019-12-26] MEDS: ASA/APAP/ CAFFEINE TABLET PO PRN (05:44)
[2019-12-26] MEDS: HEPARIN 5,000 UNITS/ML, 1ML SQ SCH ×3 (05:44→19:58)
[2019-12-26] MEDS: ASPIRIN 81 MG TABLET EC PO SCH (05:44)
[2019-12-26 06:11] LABS: BASOPHILS % (AUTO) 0 % (0-1); EOSINOPHILS % (AUTO) 3 % (1-7); LYMPHOCYTES % (AUTO) 8 % (22-44); MEAN CORPUSCULAR HEMOGLOBIN 29.4 pg (27.5-34.5); MEAN CORPUSCULAR HGB CONC 32.3 g/dL (33.2-36.2); MEAN PLATELET VOLUME 8.7 fL (7.4-10.4); MONOCYTES % (AUTO) 15 % (2-9); NEUTROPHILS % (AUTO) 75 % (42-75); PLATELET COUNT 207 x10^3/uL (130-400); RED BLOOD COUNT 3.94 x10^6/uL (4.38-5.82); RED CELL DISTRIBUTION WIDTH 16.5 % (9.4-14.8)
[2019-12-26 06:15] LABS: MD NO
[2019-12-26 06:21] LABS: ANION GAP 4 mmol/L (5-15); CALCIUM 8.8 mg/dL (8.5-10.1); CHLORIDE 118 mmol/L (98-107); CREATININE 2.25 mg/dL (0.7-1.3)
[2019-12-26 06:38] VITALS: BP 126/72
[2019-12-26] MEDS: SENNA/DOCUSATE TABLET PO SCH (09:37)
[2019-12-26] MEDS: OMEPRAZOLE 20 MG CAPSULE.DR PO SCH (09:37)
[2019-12-26] MEDS: GABAPENTIN 300 MG CAPSULE PO SCH ×3 (09:37→19:57)
[2019-12-26] MEDS: CHOLECALCIFEROL 1,000 UNIT TABLET PO SCH (09:37)
[2019-12-26] MEDS: FERROUS SULFATE 325 MG TABLET PO SCH (09:38)
[2019-12-26] MEDS: AMIODARONE 200 MG TABLET PO SCH (09:38)
[2019-12-26] MEDS: FLUTICASONE/VILANTEROL 100-25MCG/INH INH SCH (09:39)
[2019-12-26] MEDS: TIOTROPIUM BROMIDE 18 MCG/INH INH SCH (09:39)
[2019-12-26] MEDS: METOPROLOL SUCCINATE 25 MG TAB.ER.24H PO SCH (09:39)
[2019-12-26] MEDS: ASCORBIC ACID 500 MG TABLET PO SCH (09:45)
[2019-12-26 12:19] VITALS: BP 98/63
[2019-12-26] MEDS ORDERED: CEFD300C37 PO (15:05)
[2019-12-26 19:29] VITALS: BP 115/76
[2019-12-26] MEDS: CEFTRIAXONE PMX 1GM/50ML 50 ML IV SCH (19:57)
[2019-12-26] MEDS: ATORVASTATIN 40 MG TABLET PO SCH (19:58)
[2019-12-26] MEDS: SUMATRIPTAN 50 MG TABLET PO PRN (20:18)
[2019-12-26 23:59] VITALS: BP 111/66
[2019-12-27] MEDS: ASPIRIN 81 MG TABLET EC PO SCH (06:01)
[2019-12-27] MEDS: HEPARIN 5,000 UNITS/ML, 1ML SQ SCH (06:02)
[2019-12-27 06:27] VITALS: BP 138/79
[2019-12-27] MEDS: OMEPRAZOLE 20 MG CAPSULE.DR PO SCH (08:43)
[2019-12-27] MEDS: ASCORBIC ACID 500 MG TABLET PO SCH (08:43)
[2019-12-27] MEDS: SENNA/DOCUSATE TABLET PO SCH (08:43)
[2019-12-27] MEDS: AMIODARONE 200 MG TABLET PO SCH (08:43)
[2019-12-27] MEDS: GABAPENTIN 300 MG CAPSULE PO SCH (08:43)
[2019-12-27] MEDS: FERROUS SULFATE 325 MG TABLET PO SCH (08:44)
[2019-12-27] MEDS: METOPROLOL SUCCINATE 25 MG TAB.ER.24H PO SCH (08:44)
[2019-12-27] MEDS: CHOLECALCIFEROL 1,000 UNIT TABLET PO SCH (08:44)
[2019-12-27] MEDS: FLUTICASONE/VILANTEROL 100-25MCG/INH INH SCH (09:00)
[2019-12-27] MEDS: TIOTROPIUM BROMIDE 18 MCG/INH INH SCH (09:00)
[2019-12-27 12:12] VITALS: BP 115/67
== END 2019-12-27 13:44 | DRG 689 ==
LOC: ED 20:57 → EDIP 21:21 → 4WST 22:22
PROVIDERS: ADMIT Family Medicine; ATTEND Family Medicine
DX: N10 Acute pyelonephritis (principal); J96.21 Acute and chronic respiratory failure with hypoxia; I50.32 Chronic diastolic (congestive) heart failure; D68.69 Other thrombophilia; I13.0 Hypertensive heart and chronic kidney disease with heart failure and stage 1 through stage 4 chronic kidney disease, or unspecified chronic kidney disease; N17.0 Acute kidney failure with tubular necrosis; E78.5 Hyperlipidemia, unspecified; D64.9 Anemia, unspecified; B96.20 Unspecified Escherichia coli [E. coli] as the cause of diseases classified elsewhere; G47.33 Obstructive sleep apnea (adult) (pediatric); I44.7 Left bundle-branch block, unspecified; I48.0 Paroxysmal atrial fibrillation; J44.9 Chronic obstructive pulmonary disease, unspecified; K21.9 Gastro-esophageal reflux disease without esophagitis; K59.00 Constipation, unspecified; M79.2 Neuralgia and neuritis, unspecified; N18.30 Chronic kidney disease, stage 3 unspecified; Z95.818 Presence of other cardiac implants and grafts; E66.9 Obesity, unspecified; Z71.3 Dietary counseling and surveillance; Z68.36 Body mass index [BMI] 36.0-36.9, adult
CPT/HCPCS: 36415; 70450; 71045; 74176; 80048; 80053; 81001; 82570; 83690; 83880; 84300; 84484; 84540; 85025; 87077; 87086; 87186; 93005; 93306; 94640; 96361; 96374; 99285; G0378; J0696; J1644; J2270; J7030

== ENCOUNTER 2020-01-30 14:49 | Emergency (ER) | payer MEDICARE ==
[~2020-01-30] VITALS: Ht 182.9 cm; Wt 106.0 kg
--- NOTE | 2020-01-30 15:42 | NUR ---
DIRECTOR DESIGN: PT TO ROOM FROM LOBBY VIA SB
[2020-01-30] MEDS ORDERED: OXYcodone/APAP 5/325MG TABLET PO ONE (16:00)
[2020-01-30] MEDS ORDERED: OXYcodone/APAP 5/325MG TABLET ONE (16:09)
[2020-01-30 16:36] VITALS: BP 109/65
== END 2020-01-30 17:17 | disposition home or self-care (01) ==
LOC: ED 16:11
DX: S20.211A Contusion of right front wall of thorax, initial encounter (principal); J44.9 Chronic obstructive pulmonary disease, unspecified; I11.0 Hypertensive heart disease with heart failure; I50.9 Heart failure, unspecified; I48.91 Unspecified atrial fibrillation; W01.0XXA Fall on same level from slipping, tripping and stumbling without subsequent striking against object, initial encounter; Y93.89 Activity, other specified; Y92.009 Unspecified place in unspecified non-institutional (private) residence as the place of occurrence of the external cause; Y99.8 Other external cause status
CPT/HCPCS: 99283

== ENCOUNTER → 2020-02-13 | Outpatient (CLI) | payer MEDICARE ==
[2020-02-13 12:21] LABS: BASOPHILS % (AUTO) 1 % (0-1); EOSINOPHILS % (AUTO) 3 % (1-7); LYMPHOCYTES % (AUTO) 13 % (22-44); MEAN CORPUSCULAR HEMOGLOBIN 29.1 pg (27.5-34.5); MEAN CORPUSCULAR HGB CONC 32.8 g/dL (33.2-36.2); MEAN PLATELET VOLUME 8.1 fL (7.4-10.4); MONOCYTES % (AUTO) 15 % (2-9); NEUTROPHILS % (AUTO) 68 % (42-75); PLATELET COUNT 215 x10^3/uL (130-400); RED BLOOD COUNT 4.09 x10^6/uL (4.38-5.82); RED CELL DISTRIBUTION WIDTH 15.5 % (9.4-14.8)
[2020-02-13 12:25] LABS: MD NO
[2020-02-13 12:31] LABS: ALBUMIN 3.1 g/dL (3.4-5.0); ANION GAP 3 mmol/L (5-15); CALCIUM 9.4 mg/dL (8.5-10.1); CHLORIDE 111 mmol/L (98-107)
[2020-02-13 12:35] LABS: ALANINE AMINOTRANSFERASE 19 U/L (12-78); ALKALINE PHOSPHATASE 85 U/L (45-117); BILIRUBIN,TOTAL 0.4 mg/dL (0.2-1.0); CREATININE 2.64 mg/dL (0.7-1.3); TOTAL PROTEIN 7.2 g/dL (6.4-8.2)
[2020-02-13 12:46] LABS: MICROSCOPIC INDICATED
[2020-02-13 12:50] LABS: CREATININE,URINE RANDOM 92.9 mg/dL
== END | disposition home or self-care (01) ==
LOC: LAB 11:41
PROVIDERS: ATTEND Internal Medicine Nephrology
DX: I12.9 Hypertensive chronic kidney disease with stage 1 through stage 4 chronic kidney disease, or unspecified chronic kidney disease (principal); N18.30 Chronic kidney disease, stage 3 unspecified; R80.9 Proteinuria, unspecified; R60.9 Edema, unspecified; D63.1 Anemia in chronic kidney disease; E55.9 Vitamin D deficiency, unspecified; I48.91 Unspecified atrial fibrillation
CPT/HCPCS: 36415; 80053; 81001; 82043; 82570; 83735; 84100; 84156; 85025; 87077; 87086

== ENCOUNTER → 2020-09-28 | Outpatient (CLI) | payer MEDICARE ==
[~2020-09-28] MED LIST changes: +FERR324T23 PO; -FERR325T16 PO; -OXYC5TAB3 PO; +OXYC5TAB98 PO
[2020-09-28 12:47] LABS: ANION GAP 5 mmol/L (5-15); CALCIUM 9.4 mg/dL (8.5-10.1); CHLORIDE 109 mmol/L (98-107)
[2020-09-28 12:48] LABS: CREATININE 2.82 mg/dL (0.7-1.3)
== END | disposition home or self-care (01) ==
LOC: LAB 11:53
PROVIDERS: ATTEND Internal Medicine Cardiovascular Disease
DX: I11.0 Hypertensive heart disease with heart failure (principal); I50.30 Unspecified diastolic (congestive) heart failure
CPT/HCPCS: 36415; 80048; 83880

== ENCOUNTER 2020-10-23 11:54 | Outpatient (CLI) | payer MEDICARE ==
[~2020-10-23 11:54] MED LIST changes: +POTA-143 PO; -POTA20TA6 PO
[2020-10-23 12:27] LABS: ALANINE AMINOTRANSFERASE 18 U/L (12-78); ALBUMIN 3.3 g/dL (3.4-5.0); ANION GAP 5 mmol/L (5-15); CALCIUM 9.1 mg/dL (8.5-10.1); CHLORIDE 112 mmol/L (98-107); CREATININE 2.69 mg/dL (0.7-1.3)
[2020-10-23 12:30] LABS: ALKALINE PHOSPHATASE 66 U/L (45-117); BILIRUBIN,TOTAL 0.5 mg/dL (0.2-1.0); TOTAL PROTEIN 7.2 g/dL (6.4-8.2)
[2020-10-23 12:41] LABS: BASOPHILS % (AUTO) 1 % (0-1); EOSINOPHILS % (AUTO) 3 % (1-7); LYMPHOCYTES % (AUTO) 15 % (22-44); MEAN CORPUSCULAR HEMOGLOBIN 30.4 pg (27.5-34.5); MEAN CORPUSCULAR HGB CONC 32.7 g/dL (33.2-36.2); MEAN PLATELET VOLUME 9.4 fL (7.4-10.4); MONOCYTES % (AUTO) 17 % (2-9); NEUTROPHILS % (AUTO) 65 % (42-75); PLATELET COUNT 151 x10^3/uL (130-400); RED BLOOD COUNT 4.27 x10^6/uL (4.38-5.82); RED CELL DISTRIBUTION WIDTH 14.1 % (9.4-14.8)
== END 2020-10-23 23:59 | disposition home or self-care (01) ==
LOC: LAB 11:54
PROVIDERS: ATTEND Internal Medicine Nephrology
DX: I12.9 Hypertensive chronic kidney disease with stage 1 through stage 4 chronic kidney disease, or unspecified chronic kidney disease (principal); N18.4 Chronic kidney disease, stage 4 (severe); R80.9 Proteinuria, unspecified; R60.9 Edema, unspecified; D63.1 Anemia in chronic kidney disease; E55.9 Vitamin D deficiency, unspecified; I48.91 Unspecified atrial fibrillation
CPT/HCPCS: 36415; 80053; 85025

== ENCOUNTER 2020-11-02 15:21 | Outpatient (CLI) | payer MEDICARE | END 2020-11-02 23:59 | disposition home or self-care (01) | LOC: CVU 15:21 | PROVIDERS: ATTEND Internal Medicine Cardiovascular Disease | DX: I08.3 Combined rheumatic disorders of mitral, aortic and tricuspid valves (principal); I48.91 Unspecified atrial fibrillation; Z95.0 Presence of cardiac pacemaker | CPT/HCPCS: 93306 ==